=== PATIENT | male | born 1955 | race Caucasian/White ===

== ENCOUNTER → 2016-02-14 | Outpatient (CLI) | payer OTHER ==
--- NOTE | 2016-02-15 15:00 | ECGEPIP ---
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
== END ==
LOC: M LAB 15:52
PROVIDERS: ATTEND Orthopaedic Surgery
DX: Z01.818 Encounter for other preprocedural examination (principal); M17.11 Unilateral primary osteoarthritis, right knee

== ENCOUNTER → 2016-04-17 | Outpatient (CLI) | payer BC, OTHER ==
[~2016-04-17] VITALS: Ht 172.7 cm; Wt 86.2 kg
[~2016-04-17] MED LIST: ASPI81TA85 PO; ATOR40TA PO; LIDOCAINE 2% INJ 100 MG/5 ML SDV (FOR ANES.) As Ordered ONE; NS 1,000 ML IV SCH; OMEP40CA2 PO; PROPOFOL 200 MG/20 ML VIAL As Ordered ONE; VITA400C29 PO
--- NOTE | 2016-04-17 13:19 | ROOR ---
Patient Name: Wicho Conn Procedure Date: 04/17/2016 12:51 PM Date of : 1955 Age: 60 Room: [facility] Gender: Male Note Status: Finalized Procedure: Colonoscopy to Cecum + Cold Snare Polypectomy + hemoclip Indications: Screening for colorectal malignant neoplasm Providers: Gilbert Sun MD Referring MD: Ignacio Storm MD Requesting Provider: Medicines: Monitored Anesthesia Care Complications: No immediate complications. Procedure: Pre-Anesthesia Assessment: - The heart rate, respiratory rate, oxygen saturations, blood pressure, adequacy of pulmonary ventilation, and response to care were monitored throughout the procedure. The Colonoscope was introduced through the anus and advanced to the cecum, identified by appendiceal orifice and ileocecal valve. The colonoscopy was performed without difficulty. The patient tolerated the procedure well. The quality of the bowel preparation was excellent. Findings: The perianal and digital rectal examinations were normal. Non-bleeding internal hemorrhoids were found during retroflexion. The hemorrhoids were small and Grade I (internal hemorrhoids that do not prolapse). A medium polyp was found in the mid ascending colon. The polyp was sessile. The polyp was removed with a cold snare. Resection and retrieval were complete. To prevent bleeding after the polypectomy, two hemostatic clips were successfully placed (MR conditional). There was no bleeding at the end of the procedure. The exam was otherwise without abnormality on direct and retroflexion views. Impression: - Non-bleeding internal hemorrhoids. - One medium polyp in the mid ascending colon, removed with a cold snare. Resected and retrieved. Clips (MR conditional) were placed. - The examination was otherwise normal on direct and retroflexion views. - The exam was otherwise normal to the cecum. Recommendation: - Patient has a contact number available for emergencies. The signs and symptoms of potential delayed complications were discussed with the patient. Return to normal activities tomorrow. Written discharge instructions were provided to the patient. - High fiber diet. - Discharge patient to home. - Continue present medications. - Await pathology results. - Telephone GI clinic for pathology results in 1 week. - Repeat colonoscopy for surveillance based on pathology results. - Return to referring physician. - The findings and recommendations were discussed with the patient's family. Gilbert Sun MD Gilbert Sun MD 04/17/2016 1:18:52 PM This report has been signed electronically. Number of Addenda: 0 Note Initiated On: 04/17/2016 12:51 PM Estimated Blood Loss: Estimated blood loss: none.
[2016-04-17 14:02] VITALS: BP 107/86
== END ==
LOC: M OPP 11:42
PROVIDERS: ATTEND Internal Medicine Gastroenterology
DX: Z12.11 Encounter for screening for malignant neoplasm of colon (principal); D12.2 Benign neoplasm of ascending colon; K64.0 First degree hemorrhoids; I10 Essential (primary) hypertension; K21.9 Gastro-esophageal reflux disease without esophagitis; M17.11 Unilateral primary osteoarthritis, right knee; R06.83 Snoring; G47.30 Sleep apnea, unspecified; Z87.891 Personal history of nicotine dependence; Z79.82 Long term (current) use of aspirin; Z79.899 Other long term (current) drug therapy; Z88.0 Allergy status to penicillin

== ENCOUNTER → 2016-09-17 | Outpatient (CLI) | payer BC, OTHER ==
[~2016-09-17] MED LIST changes: -ATOR40TA PO; +ATOR40TA75 PO; -LIDOCAINE 2% INJ 100 MG/5 ML SDV (FOR ANES.) As Ordered ONE; -NS 1,000 ML IV SCH; -PROPOFOL 200 MG/20 ML VIAL As Ordered ONE; +VITA-110 PO; -VITA400C29 PO
--- NOTE | 2016-09-17 18:50 | REP ---
LEFT KNEE, FIVE VIEWS: HISTORY: Pain. There is no acute fracture or dislocation. There is narrowing of the joint spaces. Osteophytes are present on the patella. IMPRESSION: Degenerative change as described above. Signed by Navjot Cooley MD 09/18/2016 08:27 A
== END ==
LOC: M ADAMS 15:53
PROVIDERS: ATTEND Physician Assistant
DX: M25.562 Pain in left knee (principal)

== ENCOUNTER → 2016-11-04 | Outpatient (REF) | payer OTHER ==
[2016-11-04 12:45] LABS: ALBUMIN 3.7 GM/DL (3.2-5.2); ALBUMIN/GLOBULIN RATIO 1.12 (1.00-1.93); ALKALINE PHOSPHATASE 56 U/L (45-117); ALT/SGPT 39 U/L (12-78); ANION GAP 5 MEQ/L (8-16); AST/SGOT 22 U/L (15-37); BILIRUBIN,TOTAL 0.7 MG/DL (0.2-1.0); BLOOD UREA NITROGEN 15 MG/DL (7-18); CALCIUM LEVEL 8.7 MG/DL (8.8-10.2); CARBON DIOXIDE LEVEL 31 MEQ/L (21-32); CHLORIDE LEVEL 103 MEQ/L (98-107); CHOLESTEROL LEVEL 148 MG/DL (<200); GLOMERULAR FILTRATION RATE > 60.0 (>49); GLUCOSE, FASTING 89 MG/DL (80-110); POTASSIUM SERUM 4.4 MEQ/L (3.5-5.1); SODIUM LEVEL 139 MEQ/L (136-145); TRIGLYCERIDES LEVEL 95 MG/DL (<150)
== END ==
LOC: M SFHCADAM 08:00
PROVIDERS: ATTEND Family Medicine
DX: E78.4 Other hyperlipidemia (principal); E55.9 Vitamin D deficiency, unspecified

== ENCOUNTER → 2016-12-21 | Outpatient (CLI) | payer BC, OTHER ==
[2016-12-24 00:07] LABS: Lyme Disease IgG/IgM Antibodie <0.91 ISR (0.00-0.90); Lyme Disease IgM Ab Quantitati <0.80 index (0.00-0.79)
== END ==
LOC: M LAB 15:53
PROVIDERS: ATTEND Family Medicine
DX: Z01.83 Encounter for blood typing (principal)

== ENCOUNTER → 2018-01-12 | Outpatient (REF) | payer OTHER ==
[2018-01-12 18:49] LABS: C REACTIVE PROTEIN QUANTITATIV < 0.30 MG/DL (0.00-0.30)
[2018-01-12 19:03] LABS: BASO # 0.1 10^3/uL (0.0-0.2); BASO % 0.7 % (0.0-1.0); EOS # 0.2 10^3/uL (0.0-0.50); HEMATOCRIT 46.5 % (42.0-52.0); HEMOGLOBIN 15.6 g/dl (13.5-17.5); IMMATURE GRANULOCYTE % 0.5 % (0-3.0); LYMPH # 2.1 10^3/uL (1.5-4.5); LYMPH % 28.1 % (24.0-44.0); MEAN CORPUSCULAR HEMOGLOBIN 28.8 pg (27.0-33.0); MEAN CORPUSCULAR HGB CONC 33.5 g/dl (32.0-36.5); MONO # 0.6 10^3/uL (0.0-0.8); MONO % 7.7 % (0.0-5.0); NEUTROPHILS # 4.5 10^3/uL (1.8-7.7); PLATELET COUNT, AUTOMATED 247 10^3/uL (150-450); RED BLOOD COUNT 5.41 10^6/uL (4.30-6.10); RED CELL DISTRIBUTION WIDTH 14.3 % (11.5-14.5); WHITE BLOOD COUNT 7.4 10^3/uL (4.0-10.0)
[2018-01-12 19:52] LABS: ERYTHROCYTE SEDIMENTATION RATE 2 mm/hr (0-20)
== END ==
LOC: M LABDRAW1 12:39
DX: M17.11 Unilateral primary osteoarthritis, right knee (principal)
CPT/HCPCS: 86140

== ENCOUNTER → 2018-02-02 | Outpatient (CLI) | payer BC, OTHER ==
[~2018-02-02] MED LIST changes: +LIDOCAINE 1% MDV 20ML VIAL As Ordered ONE
--- NOTE | 2018-02-02 10:23 | REP ---
SOFT-TISSUE ULTRASOUND RIGHT KNEE: HISTORY: Right knee pain. Ultrasound preliminary to anticipated ultrasound-guided fluid aspiration right knee. MRI study , [facility] dated January 27, 2018 reported a 17 x 7 mm anteromedial fluid collection and raised a question of abscess. SONOGRAPHIC FINDINGS: Sonography performed in my presence shows no evidence of joint effusion or anteromedial fluid collection. There is no sonographic evidence of meniscal cyst, popliteal cyst or a periarticular ganglion cyst. There was no sonographic target for needle aspiration and thus this was deferred. IMPRESSION: Negative soft-tissue sonography. Periarticular soft tissues right knee. No abnormal fluid collection is observed. Electronically Signed by Anthony Valdez MD 02/02/2018 10:30 A
== END ==
LOC: M RADPRO 08:19
PROVIDERS: ATTEND Orthopaedic Surgery
DX: M25.461 Effusion, right knee (principal); Z53.8 Procedure and treatment not carried out for other reasons

== ENCOUNTER → 2018-02-14 | Outpatient (REF) | payer OTHER ==
[~2018-02-14] MED LIST changes: -LIDOCAINE 1% MDV 20ML VIAL As Ordered ONE
[2018-02-14 16:27] LABS: BLOOD UREA NITROGEN 21 MG/DL (7-18); CREATININE FOR GFR 1.08 MG/DL (0.70-1.30); GLOMERULAR FILTRATION RATE > 60.0 (>49)
== END ==
LOC: M LABDRAW1 15:37
PROVIDERS: ATTEND Orthopaedic Surgery
DX: S83.241A Other tear of medial meniscus, current injury, right knee, initial encounter (principal); X58.XXXA Exposure to other specified factors, initial encounter; Y92.9 Unspecified place or not applicable

== ENCOUNTER → 2018-04-05 | Outpatient (CLI) | payer OTHER ==
[2018-04-05 17:03] LABS: BASO # 0.1 10^3/uL (0.0-0.2); BASO % 0.6 % (0.0-1.0); EOS # 0.1 10^3/uL (0.0-0.50); EOS % 1.6 % (0.0-3.0); HEMATOCRIT 44.7 % (42.0-52.0); HEMOGLOBIN 15.3 g/dl (13.5-17.5); LYMPH # 2.3 10^3/uL (1.5-4.5); LYMPH % 26.8 % (24.0-44.0); MEAN CORPUSCULAR HEMOGLOBIN 28.7 pg (27.0-33.0); MEAN CORPUSCULAR HGB CONC 34.2 g/dl (32.0-36.5); MEAN CORPUSCULAR VOLUME 83.7 fl (80.0-96.0); MONO # 0.7 10^3/uL (0.0-0.8); MONO % 8.4 % (0.0-5.0); NEUTROPHILS # 5.3 10^3/uL (1.8-7.7); NEUTROPHILS % 62.1 % (36.0-66.0); PLATELET COUNT, AUTOMATED 236 10^3/uL (150-450); RED BLOOD COUNT 5.34 10^6/uL (4.30-6.10); WHITE BLOOD COUNT 8.5 10^3/uL (4.0-10.0)
[2018-04-05 17:31] LABS: ERYTHROCYTE SEDIMENTATION RATE 2 mm/hr (0-20)
== END ==
LOC: M LAB 16:08
PROVIDERS: ATTEND Orthopaedic Surgery
DX: M17.11 Unilateral primary osteoarthritis, right knee (principal)

== ENCOUNTER → 2018-04-27 | Outpatient (CLI) | payer BC, OTHER | LOC: M RAD 09:14 | PROVIDERS: ATTEND Otolaryngology | DX: H90.A31 Mixed conductive and sensorineural hearing loss, unilateral, right ear with restricted hearing on the contralateral side (principal) ==

== ENCOUNTER → 2018-05-20 | Outpatient (CLI) | payer BC, OTHER ==
--- NOTE | 2018-05-20 11:41 | REP ---
MRI brain and internal auditory canals without and with intravenous gadolinium: History: Hearing loss right ear. Rule out retrocochlear pathology. No comparison study. Gadolinium enhancement dose is 17 mL of intravenous ProHance. MR technique: Axial and coronal imaging planes are utilized. Thin section T1 and T2-weighted imaging is included through the internal auditory canals. Sequences include spin-echo, fast spin echo, FLAIR, diffusion weighted scans and thin-section 3D gradient echo imaging. MRI findings: The vertebral basilar arteries are tortuous. The left distal vertebral artery is seen indenting and slightly rotating the spinal medullary junction at the level of the foramen magnum. No other vascular abnormality is appreciated. No bony calvarial lesion is seen. No intraorbital abnormality is observed. There is no evidence of intracranial mass lesion. The internal auditory canals are normal and symmetric in size. Seventh and eighth cranial nerves within the IACs are normal in appearance. There is no evidence of intracanalicular or extra canalicular gadolinium enhancement. No other evidence of CP angle cistern mass lesion. Vestibular and cochlear apparatus appear intact on T2-weighted scans bilaterally. No abnormal intracranial gadolinium enhancement is seen. Impression: There is mass effect on the spinal medullary junction from a tortuous and somewhat ectatic left distal vertebral artery. Otherwise negative brain and internal auditory canal MRI exam. Electronically Signed by Anthony Valdez MD 05/20/2018 08:00 P
== END ==
LOC: M PLARAD 08:47
PROVIDERS: ATTEND Otolaryngology
DX: H90.A31 Mixed conductive and sensorineural hearing loss, unilateral, right ear with restricted hearing on the contralateral side (principal); I67.2 Cerebral atherosclerosis

== ENCOUNTER 2018-06-18 09:15 | Emergency (ER) | payer OTHER, BC ==
[~2018-06-18] VITALS: Ht 172.7 cm; Wt 92.7 kg
[2018-06-18] MEDS ORDERED: KETOROLAC 60 MG/2 ML VIAL (J1885) IM ONE (10:15)
--- NOTE | 2018-06-18 11:15 | REP ---
CT STUDY OF THE RIGHT KNEE WITHOUT CONTRAST: HISTORY: Evaluate for stress fracture. Comparison MRI study is from January 27, 2018. TECHNIQUE: Helical scanning is acquired, and 2 mm axial images are generated. Coronal and sagittal MPR images are generated. CT FINDINGS: No significant joint effusion is seen. No observable Deutsch cyst is seen. There is, however, a small fluid collection medial to the proximal tibial metaphysis. This measures 1.6 x 1.2 cm. This could be a para meniscal cyst. It is visible on the MRI study. Adjacent to this in the medial aspect of the proximal tibia is an area of sclerosis surrounding a more central area of mixed density in the medial tibial plateau. There is subcortical cyst formation immediately underlying the cortical margin of the tibial plateau. No periosteal reaction or samantha bone destruction is seen. This area shows abnormal signal intensity on the recent MRI study. There is medial compartment joint space narrowing and spurring. Some lateral osteoarthritic spurring is seen as well. The patellofemoral compartment shows osteoarthritis with subcortical cyst formation and spur formation. Joint space narrowing and cartilage loss is seen in the patellofemoral compartment. There is some vascular calcification. IMPRESSION: Osteoarthritic changes. No evidence of stress fracture. Subcortical cyst formation and arthritis associated edema and sclerosis in the medial tibial plateau. There is a small fluid collection anterior and medial to the proximal tibia as seen on the MRI study. These findings correspond to MR findings from January 27, 2018. No evidence of an acute change. Electronically Signed by Anthony Valdez MD 06/18/2018 12:20 P
[2018-06-18 11:23] VITALS: BP 129/87
== END 2018-06-18 11:46 | disposition home or self-care (01) ==
LOC: M ED 09:15
DX: M17.11 Unilateral primary osteoarthritis, right knee (principal); E78.5 Hyperlipidemia, unspecified; K21.9 Gastro-esophageal reflux disease without esophagitis; Z72.0 Tobacco use; Z87.81 Personal history of (healed) traumatic fracture; Z88.0 Allergy status to penicillin; Z79.899 Other long term (current) drug therapy; Z79.82 Long term (current) use of aspirin
CPT/HCPCS: 73700; 96372; 99283; J1885

== ENCOUNTER → 2018-06-24 | Outpatient (CLI) | payer OTHER, BC ==
[2018-06-24 12:54] LABS: BASO % 0.5 % (0.0-1.0); EOS # 0.1 10^3/uL (0.0-0.50); EOS % 1.7 % (0.0-3.0); HEMATOCRIT 48.8 % (42.0-52.0); HEMOGLOBIN 16.5 g/dl (13.5-17.5); LYMPH % 26.8 % (24.0-44.0); MEAN CORPUSCULAR HEMOGLOBIN 28.3 pg (27.0-33.0); MEAN CORPUSCULAR HGB CONC 33.8 g/dl (32.0-36.5); MEAN CORPUSCULAR VOLUME 83.7 fl (80.0-96.0); MONO # 0.6 10^3/uL (0.0-0.8); MONO % 7.4 % (0.0-5.0); NEUTROPHILS # 4.8 10^3/uL (1.8-7.7); NEUTROPHILS % 63.3 % (36.0-66.0); PLATELET COUNT, AUTOMATED 265 10^3/uL (150-450); RED BLOOD COUNT 5.83 10^6/uL (4.30-6.10); WHITE BLOOD COUNT 7.5 10^3/uL (4.0-10.0)
[2018-06-24 13:17] LABS: ERYTHROCYTE SEDIMENTATION RATE 1 mm/hr (0-20)
[2018-06-24 13:47] LABS: C REACTIVE PROTEIN QUANTITATIV < 0.30 MG/DL (0.00-0.30); URIC ACID 6.3 MG/DL (3.5-7.2)
[2018-06-25 14:30] LABS: Lyme Disease IgG/IgM Antibodie <0.91 ISR (0.00-0.90); Lyme Disease IgM Ab Quantitati <0.80 index (0.00-0.79)
== END ==
LOC: M LAB 12:03
PROVIDERS: ATTEND Physician Assistant Surgical
DX: M25.561 Pain in right knee (principal)

== ENCOUNTER → 2018-11-08 | Outpatient (REF) | payer OTHER ==
[~2018-11-08] MED LIST changes: -OMEP40CA2 PO; +OMEP40CA97 PO
[2018-11-08 13:09] LABS: HEMATOCRIT 48.4 % (42.0-52.0); MEAN CORPUSCULAR HEMOGLOBIN 28.6 pg (27.0-33.0); MEAN CORPUSCULAR HGB CONC 33.1 g/dl (32.0-36.5); MEAN CORPUSCULAR VOLUME 86.4 fl (80.0-96.0); PLATELET COUNT, AUTOMATED 245 10^3/uL (150-450); WHITE BLOOD COUNT 5.4 10^3/uL (4.0-10.0)
[2018-11-08 13:23] LABS: ALBUMIN 3.7 GM/DL (3.2-5.2); ALT/SGPT 30 U/L (12-78); BILIRUBIN,TOTAL 0.7 MG/DL (0.2-1.0); BLOOD UREA NITROGEN 17 MG/DL (7-18); CALCIUM LEVEL 9.2 MG/DL (8.8-10.2); CARBON DIOXIDE LEVEL 28 MEQ/L (21-32); CHLORIDE LEVEL 105 MEQ/L (98-107); CHOLESTEROL LEVEL 266 MG/DL (<200); CHOLESTEROL RISK RATIO 7.388 (<5); CREATININE FOR GFR 1.14 MG/DL (0.70-1.30); GLOMERULAR FILTRATION RATE > 60.0 (>49); GLUCOSE, FASTING 92 MG/DL (70-100); HDL CHOLESTEROL 36 MG/DL (>40); LDL CHOLESTEROL 192 MG/DL (<100); NON-HDL-C 230 MG/DL; POTASSIUM SERUM 4.6 MEQ/L (3.5-5.1); SODIUM LEVEL 139 MEQ/L (136-145); TOTAL PROTEIN 7.3 GM/DL (6.4-8.2); TRIGLYCERIDES LEVEL 191 MG/DL (<150)
== END ==
LOC: M SFHCADAM 10:50
PROVIDERS: ATTEND Family Medicine
DX: Z12.5 Encounter for screening for malignant neoplasm of prostate (principal); E78.5 Hyperlipidemia, unspecified; K21.9 Gastro-esophageal reflux disease without esophagitis
CPT/HCPCS: 80053; 80061; 85027; G0103

== ENCOUNTER → 2019-12-21 | Outpatient (REF) | payer OTHER ==
[~2019-12-21] MED LIST changes: -ASPI81TA85 PO; +ASPI81TA86 PO
[2019-12-21 13:38] LABS: ALBUMIN 3.4 GM/DL (3.2-5.2); ALT/SGPT 21 U/L (12-78); BILIRUBIN,TOTAL 0.9 MG/DL (0.2-1.0); BLOOD UREA NITROGEN 16 MG/DL (7-18); CALCIUM LEVEL 8.8 MG/DL (8.8-10.2); CARBON DIOXIDE LEVEL 29 MEQ/L (21-32); CHLORIDE LEVEL 104 MEQ/L (98-107); CHOLESTEROL LEVEL 197 MG/DL (<200); CHOLESTEROL RISK RATIO 4.581 (<5); GLOMERULAR FILTRATION RATE > 60.0 (>49); GLUCOSE, FASTING 89 MG/DL (70-100); HDL CHOLESTEROL 43 MG/DL (>40); LDL CHOLESTEROL 129 MG/DL (<100); NON-HDL-C 154 MG/DL; SODIUM LEVEL 138 MEQ/L (136-145); TOTAL PROTEIN 6.6 GM/DL (6.4-8.2); TRIGLYCERIDES LEVEL 125 MG/DL (<150)
== END ==
LOC: M SFHCADAM 09:13
PROVIDERS: ATTEND Family Medicine
DX: E78.5 Hyperlipidemia, unspecified (principal); Z12.5 Encounter for screening for malignant neoplasm of prostate

== ENCOUNTER 2020-08-30 02:24 | Inpatient (IN) | payer BC, OTHER ==
[~2020-08-30] VITALS: Ht 175.3 cm; Wt 69.5 kg
[~2020-08-30 02:24] MED LIST changes: +OMEP40CA4 PO; -OMEP40CA97 PO
[2020-08-30] MEDS ORDERED: NS 1,000 ML IV ONE ×3 (02:40→06:00)
[2020-08-30] MEDS ORDERED: ONDANSETRON 4MG/2ML VIAL IV ONE (02:40)
[2020-08-30] MEDS: MORPHINE 2 MG/ML 1ML VIAL (J2270) IV PRN ×2 (02:57→06:27)
[2020-08-30 03:09] LABS: BASO % 0.2 % (0.0-1.0); EOS % 0.3 % (0.0-3.0); HEMATOCRIT 45.1 % (42.0-52.0); HEMOGLOBIN 15.5 g/dl (13.5-17.5); LYMPH % 7.9 % (24.0-44.0); MEAN CORPUSCULAR HEMOGLOBIN 29.2 pg (27.0-33.0); MEAN CORPUSCULAR HGB CONC 34.4 g/dl (32.0-36.5); MEAN CORPUSCULAR VOLUME 84.9 fl (80.0-96.0); MONO # 0.6 10^3/uL (0.0-0.8); MONO % 4.8 % (2.0-8.0); NEUTROPHILS # 10.6 10^3/uL (1.5-8.5); NEUTROPHILS % 86.5 % (36.0-66.0); PLATELET COUNT, AUTOMATED 208 10^3/uL (150-450); RED BLOOD COUNT 5.31 10^6/uL (4.30-6.10); WHITE BLOOD COUNT 12.3 10^3/uL (4.0-10.0)
[2020-08-30] MEDS ORDERED: ISOVUE-370 76% 100ML VIAL As Ordered ONE (03:10)
[2020-08-30 03:49] LABS: ALT/SGPT 25 U/L (12-78); CPK CREATINE PHOSPHOKINASE 201 U/L (39-308)
[2020-08-30 03:50] LABS: ALBUMIN 3.6 GM/DL (3.2-5.2); BILIRUBIN,DIRECT 0.1 MG/DL (0.0-0.2); BILIRUBIN,TOTAL 0.5 MG/DL (0.2-1.0); CK-MB VALUE MASS 2.7 NG/ML (<3.6); LIPASE 24388 U/L (73-393); MB/CK RELATIVE INDEX 1.34 (< OR =4); TOTAL PROTEIN 6.7 GM/DL (6.4-8.2); TROPONIN I < 0.02 NG/ML (< 0.10)
[2020-08-30 03:54] LABS: RSV AMPLIFICATION NEGATIVE (NEGATIVE)
--- NOTE | 2020-08-30 04:52 | REPVR ---
PROCEDURE INFORMATION: Exam: CT Abdomen And Pelvis With Contrast Exam date and time: 08/30/2020 2:38 AM Age: 64 years old Clinical indication: Abdominal pain; Localized; Right lower quadrant (rlq); Additional info: Rlq pain TECHNIQUE: Imaging protocol: Computed tomography of the abdomen and pelvis with contrast. Radiation optimization: All CT scans at this facility use at least one of these dose optimization techniques: automated exposure control; mA and/or kV adjustment per patient size (includes targeted exams where dose is matched to clinical indication); or iterative reconstruction. Contrast material: ISO; Contrast volume: 100 ml; Contrast route: INTRAVENOUS (IV); COMPARISON: CR PORTABLE CHEST X-RAY 08/30/2020 2:42 AM FINDINGS: Mild dependent atelectatic changes in the posterior right lung base. Probable calcified granuloma in the anterior right lung base. Lung bases are otherwise clear. No pleural effusion. The liver, spleen, pancreas and adrenals are grossly normal. Gallbladder is normally distended with no evidence of calcified gallstones. Kidneys demonstrate symmetric function. No focal parenchymal abnormalities or obstructive uropathy. Atherosclerotic changes identified within the abdominal aorta and aortic branch vessels with no evidence of aneurysmal dilatation. There is concentric thickening of the romero of the gastric antrum. There are probable small duodenal diverticula within the 3rd and 4th portion of the duodenum. There are moderate inflammatory changes with inflammatory fluid adjacent to the duodenum extending into the right abdomen and right lower quadrant. Small and large bowel loops are otherwise unremarkable. No evidence of enteric obstruction. There is a normal appendix. Pelvic organs are grossly normal. No significant free fluid in the abdomen or pelvis. IMPRESSION: Concentric thickening of the romero of the gastric antrum. Probable small diverticula or ulcerations in the duodenum. Moderate inflammatory changes adjacent to the duodenum with probable inflammatory fluid extending into the right abdomen and right lower quadrant. Etiology is unknown. Diagnostic considerations would favor infectious or inflammatory gastroenteritis including peptic ulcer disease. Clinical correlation and follow-up is recommended. Incidental note is made of a normal appendix with no evidence of appendicitis. No other acute intra-abdominal or pelvic process. Additional nonemergent findings as described above. Electronically signed by: Maicol Gonsales On 08/30/2020 04:52:05 AM
--- NOTE | 2020-08-30 04:52 | REPVR ---
PROCEDURE INFORMATION: Exam: XR Chest Exam date and time: 08/30/2020 3:08 AM Age: 64 years old Clinical indication: Pain; Angina pectoris; Additional info: Abdominal pain TECHNIQUE: Imaging protocol: XR of the chest. Views: 1 view. COMPARISON: No relevant prior studies available. FINDINGS: Cardiac silhouette is within normal limits. Aerated lungs are clear with no focal areas of consolidation, pleural effusion or overt failure. IMPRESSION: Examination limited by portable technique. No acute pulmonary process. Electronically signed by: Maicol Gonsales On 08/30/2020 04:52:38 AM
[2020-08-30] MEDS ORDERED: PRAV20TA2 PO (05:27)
[2020-08-30] MEDS: SUCRALFATE SUSP 1GM/10ML UD PO SCH ×3 (06:27→17:33)
--- NOTE | 2020-08-30 06:50 | HPEPDOC ---
[facility] Medical History & Physical Date of Admission Aug 30, 2020 Date of Service: Aug 30, 2020 History and Physical CHIEF COMPLAINT: Abdominal pain since 11 PM last night HISTORY OF PRESENT ILLNESS: 64-year-old male with history of cigar use and alcohol use of 5 beers with his friends 2-3 times a week, gastroesophageal reflux disease , colonic polyps on colonoscopy by Dr. Sun, with chronic NSAID use 800 mg 3 times daily as needed and aspirin 81 mg daily presents to the emergency room with acute onset of bandlike epigastric abdominal pain described as "like you did a bunch is sit- ups," that started at 11 PM last night accompanied with one episode of nausea and vomiting and slight coffee-ground emesis in the ER without fever chills or diarrhea. Patient denies any dysphagia odynophagia hematemesis bright red blood per rectum melena or black tarry stools, dysuria urgency frequency flank pain chest pain pressure tightness lightheadedness shortness of breath dizziness. He has had no prior episodes in the past and took Pepto-Bismol without any improvement. Patient says that he has had a 50 pound weight loss in the past 15 months initially because he was dieting and was walking 2 to 4 miles a day but over the past 2 weeks patient continues to lose weight despite eating snacks and his normal diet. In the ER patient was hemodynamically stable, EKG was sinus without acute ST-T wave changes, CT abdomen and pelvis shows normal pancreas, concentric thickening of the gastric antrum and small diverticula in the duodenum within the third and fourth portion with moderate inflammatory changes adjacent to the duodenum extending into the right abdomen and right lower quadrant. Lipase was 24,388. Liver function tests were within normal limits troponin was less than 0.02 and lactic acid was 1.2. Hospitalist was asked to admit the patient for abdominal pain possible pancreatitis. PAST MEDICAL HISTORY: Gastroesophageal reflux disease hyperlipidemia allergic rhinitis obstructive sleep apnea on CPAP vitamin D deficiency internal hemorrhoids nonbleeding colonic polyps status post hemos static clips by Dr. Sun in 2017 degenerative joint disease of the left knee PAST SURGICAL HISTORY: Colonoscopy hernia repair by Dr. 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 REVIEW OF SYSTEMS: 10 point review of systems negative aside from positive findings in HPI HOME MEDICATIONS: Please see below. PHYSICAL EXAMINATION: VITAL SIGNS: See below GENERAL APPEARANCE: No icterus jaundice no distress awake alert oriented x3 HEENT: Pupils equally round reactive to light accommodation extract muscles intact no JVD no thyromegaly no cervical lymphadenopathy moist mucous membranes CARDIOVASCULAR: S1-S2 sinus rhythm no murmurs rubs or gallops LUNGS: Clear to auscultation no wheezing rales or rhonchi air entry is equal bilaterally ABDOMEN: Positive bowel sounds x4 quadrants soft tender in the epigastric region no rebound or guarding EXTREMITIES: No cyanosis clubbing or pitting edema LABORATORY DATA: See below. IMAGING: CT abdomen and pelvis normal pancreas. Concentric thickening of the romero of the gastric antrum small diverticula or ulcerations in the duodenum moderate inflammatory changes adjacent to the duodenum with probable inflammatory fluid extending into the right abdomen and right lower quadrant etiology unknown no other acute intra-abdominal or pelvic process. MICROBIOLOGY: Please see below. ASSESSMENT: 64-year-old male with past medical history significant for gastroesophageal reflux disease, tobacco and alcohol use 5 beers 2-3 times a week, nonsteroidal anti-inflammatory use with ibuprofen 800 mg 3 times daily as needed and chronic aspirin 81 mg daily, prior colonoscopy showing sessile polyp status post 2 hemostatic clips done by Dr. Sun 2017, internal hemorrhoids presents to the emergency room with acute onset of bandlike epigastric abdominal pain without fever chills but with episode of nausea and vomiting with small amount of coffee-ground emesis. Patient is hemodynamically stable with normal hemoglobin lipase is 24,[address] abdomen and pelvis showing normal pancreas, concentric thickening of the romero of the gastric antrum, probable small diverticula or ulcerations in the duodenum, moderate inflammatory changes adjacent to the duodenum with inflammatory fluid extending into the right abdomen and right lower quadrant. Patient will be admitted as an inpatient for 2 midnights for the following issues: Abdominal pain -Probable NSAID induced antral gastritis or duodenal ulcer with 1 episode of coffee-ground emesis. -Normal pancreas on CT abdomen and pelvis despite elevated lipase level of 24,000 -Patient will be kept n.p.o. with IV fluids Protonix and Carafate will be given if patient has overt hematemesis he may need to have EGD during this admission -Check H. pylori -Referred to Dr. Sun as outpatient if stable during this admission for an EGD -PPI twice daily and Carafate 1 g every 6 while n.p.o. before every meal at bedtime once resumes an oral diet -Avoid NSAIDs and hold aspirin. 50lb weight loss -in the past 15 months, initially intentional with increased exercise and diet, but recently in the past 2 weeks, continues to have weight loss despite increa sed caloric intake. -check possible metabolic causes eg. a1c, tsh. -colonoscopy negative in [address] Sun. Gastroesophageal reflux disease -PPI hyperlipidemia -Check lipid profile allergic rhinitis obstructive sleep apnea on CPAP -Resume home CPAP vitamin D deficiency internal hemorrhoids nonbleeding colonic polyps status post hemos static clips by Dr. Sun in 2017 degenerative joint disease of the left knee Alcohol use -5 beers 2-3 times a week -CIWA protocol -Given a banana bag multivitamin thiamine folate Tobacco abuse with cigar use -Cessation counseling has been provided Diet n.p.o. IV fluids DVT prophylaxis compression stockings Vital Signs Vital Signs Date Time Temp Pulse Resp B/P (MAP) Pulse Ox O2 Delivery O2 Flow Rate FiO2 08/30/20 05:54 61 98 08/30/20 03:07 18 08/30/20 02:32 96.9 116/68 Room Air Laboratory Data Labs 24H Laboratory Tests 2 08/30/20 02:42: Immature Granulocyte % (Auto) 0.3, Neutrophils (%) (Auto) 86.5H, Lymphocytes (%) (Auto) 7.9L, Monocytes (%) (Auto) 4.8, Eosinophils (%) (Auto) 0.3, Basophils (%) (Auto) 0.2, Neutrophils # (Auto) 10.6H, Lymphocytes # (Auto) 1.0L, Monocytes # (Auto) 0.6, Eosinophils # (Auto) 0.0, Basophils # (Auto) 0.0, Nucleated Red Blood Cells % (auto) 0.0, Urine Color YELLOW, Urine Appearance CLEAR, Urine pH 7.0, Urine Specific [place] 1.034, Urine Protein 1+H, Urine Glucose (UA) NEGATIVE, Urine Ketones TRACEH, Urine Blood NEGATIVE, Urine Nitrite NEGATIVE, Urine Bilirubin NEGATIVE, Urine Urobilinogen 0.2, Urine Leukocyte Esterase NEGATIVE, Urine WBC (Auto) 0, Urine RBC (Auto) 0, Urine Hyaline Casts (Auto) 0, Urine Bacteria (Auto) NEGATIVE, Urine Squamous Epithelial Cells 0, Urine Mucus (Auto) SMALL, Urine Sperm (Auto) SMALLH, Lactic Acid Level 1.2, Total Bilirubin 0.5, Direct Bilirubin 0.1, Aspartate Amino Transf (AST/SGOT) 18, Alanine Aminotransferase (ALT/SGPT) 25, Alkaline Phosphatase 47, Total Creatine Kinase 201, Creatine Kinase MB 2.7, Creatine Kinase MB Relative Index 1.34, Troponin I < 0.02, Total Protein 6.7, Albumin 3.6, Albumin/Globulin Ratio 1.2, Lipase 63459E, Coronavirus (COVID-19)(PCR) NEGATIVE, Influenza Type A (RT-PCR) NEGATIVE, Influenza Type B (RT-PCR) NEGATIVE, Respiratory Syncytial Virus (PCR) NEGATIVE 08/30/20 03:03: POC Glucose (Misc Panel) 143H, POC Sodium (Misc Panel) 140, POC Potassium (Misc Panel) 3.6, POC Chloride (Misc Panel) 100, POC Total CO2 (Misc Panel) 23.0, POC Blood Urea Nitrogen (Misc Panel 22, POC Ionized Calcium (Misc Panel) 4.5, POC Creatinine (Misc Panel) 1.1, POC Hematocrit (Misc Panel) 47.0 CBC/BMP Laboratory Tests 08/30/20 02:42 Home Medications Scheduled Omeprazole (Omeprazole) 40 Mg Cap, 40 MG PO DAILY Pravastatin Sodium (Pravastatin Sodium) 20 Mg Tablet, 20 MG PO DAILY Allergies Coded Allergies: Penicillins (Verified Allergy, Mild, HVIES, 08/30/20) A-FIB/CHADSVASC A-FIB History Current/History of A-Fib/PAF?: No Current PO Anticoag Therapy: No Age/Risk Factor Scoring CHADSVASC: CHADSVASC Response (Comments) Value Age Risk Factor Age < 65 years old 0 Gender Risk Factor Male 0 Hx of CHF No 0 Hx of HTN No 0 Hx of Stroke/TIA/or VTE No 0 Hx of Diabetes No 0 Hx of Vascular Disease No 0 Total 0 Treatment Treatment ordered: NONE FANNY CRANE MD Aug 30, 2020 06:48
[2020-08-30] MEDS ORDERED: MULTIVITAMIN -ADULT INJECTION 10 ML, THIAMINE INJection 100 MG, FOLIC ACID 1 MG in NS 1... IV ONE (07:00)
[2020-08-30 08:53] LABS: CHOLESTEROL LEVEL 164 MG/DL (<200); HDL CHOLESTEROL 41 MG/DL (>40); LDL CHOLESTEROL 103 MG/DL (<100); NON-HDL-C 123 MG/DL; TRIGLYCERIDES LEVEL 98 MG/DL (<150)
[2020-08-30 09:10] LABS: HEMOGLOBIN A1c 5.2 %
[2020-08-30 12:31] VITALS: BP 123/70
[2020-08-30 14:00] VITALS: BP 120/72
[2020-08-30] MEDS ORDERED: D5W/0.45% SODIUM CHLORIDE 1,000 ML IV SCH (17:00)
--- NOTE | 2020-08-30 18:17 | IPNPDOC ---
Text Note Date of Service The patient was seen on 08/30/20. NOTE Hospitalist Progress Note Subjective: The patient reports that his abdominal pain is improved, but it is still somewhat sore. He is amenable to the idea of attempting to eat at this time. We will start him on a liquid diet, and if he tolerates this well then we may advance as tolerated, and then DC IV fluids when he is tolerating oral intake. Otherwise, the remainder of his review of systems is negative. Objective: General: Awake, alert, oriented 3. Not in any acute distress. HEENT: Head normocephalic, atraumatic, sclera are nonicteric. Hearing is grossly intact to conversation. Respiratory: Clear to auscultation bilaterally with no wheezes, rales, or rhonchi. Cardiovascular: Regular rate and rhythm, with no rubs, gallops, or murmur. Abdomen: Soft, nontender, nondistended, no hepatosplenomegaly appreciated. Bowel sounds present. Extremities: 2+ pulses in the radial and dorsalis pedis bilaterally. No evidence of clubbing or cyanosis. Assessment/Plan : Acute pancreatitis -Etiology unknown, the patient reports that he actually only drinks a few beers on seldom occasion, no more than once or twice a month, and it has been at least 2 weeks since he has had a drink, therefore alcoholic pancreatitis seems unlikely -Imaging shows inflammation near the duodenum which could be related to pancreatic head pancreatitis, gallstones are not specifically mentioned. -Lipid profile within acceptable limits -At this time may advance diet as tolerated -Discontinue IV fluids when tolerating p.o. 50 pound weight loss over the last 1 year -The patient does report that he has been making a significant attempt at weight loss. He has been exercising regularly and using some slim-fast shakes, therefore this weight loss is not unexpected. He is just wondering if the significant amount of weight loss could have contributed to his developing pancreatitis. NSAID use -His abdominal pain could also be secondary to NSAID induced gastritis or duodenal ulcer -Avoid NSAIDs and hold aspirin -Continue Carafate and PPI GERD -Continue PPI Obstructive sleep apnea -Patient may use home CPAP Alcohol use -Patient reports that he does not use alcohol as heavily as was described in the H&P -Continue banana bag, multivitamin, thiamine Tobacco abuse with cigarette use -Cessation counseling DVT prophylaxis -Compression stockings VS,Fishbone, I+O VS, Fishbone, I+O Laboratory Tests 08/30/20 02:42 Vital Signs Date Time Temp Pulse Resp B/P (MAP) Pulse Ox O2 Delivery O2 Flow Rate FiO2 08/30/20 14:00 97.6 62 16 120/72 (88) 99 Room Air I&O- Last 24 Hours up to 6 AM 08/30/20 06:00 Intake Total 1000 ml Balance 1000 ml ARYA CARLTON DO Aug 30, 2020 18:17
[2020-08-30 21:00] VITALS: BP 95/63
[2020-08-30 22:00] VITALS: BP 95/63
[2020-08-31] MEDS: SUCRALFATE SUSP 1GM/10ML UD PO SCH ×2 (00:16→05:44)
[2020-08-31 05:45] VITALS: BP 126/70
[2020-08-31 06:00] VITALS: BP 126/70
[2020-08-31 06:55] LABS: BASO % 0.5 % (0.0-1.0); EOS # 0.5 10^3/uL (0.0-0.5); HEMATOCRIT 39.6 % (42.0-52.0); HEMOGLOBIN 13.3 g/dl (13.5-17.5); LYMPH # 1.7 10^3/uL (1.5-5.0); LYMPH % 30.3 % (24.0-44.0); MEAN CORPUSCULAR HEMOGLOBIN 29.2 pg (27.0-33.0); MEAN CORPUSCULAR HGB CONC 33.6 g/dl (32.0-36.5); MEAN CORPUSCULAR VOLUME 86.8 fl (80.0-96.0); MONO # 0.4 10^3/uL (0.0-0.8); MONO % 6.6 % (2.0-8.0); NEUTROPHILS # 3.1 10^3/uL (1.5-8.5); NEUTROPHILS % 54.4 % (36.0-66.0); PLATELET COUNT, AUTOMATED 177 10^3/uL (150-450); RED BLOOD COUNT 4.56 10^6/uL (4.30-6.10); WHITE BLOOD COUNT 5.6 10^3/uL (4.0-10.0)
[2020-08-31 07:17] LABS: ALBUMIN 2.8 GM/DL (3.2-5.2); ALT/SGPT 19 U/L (12-78); BILIRUBIN,TOTAL 0.4 MG/DL (0.2-1.0); BLOOD UREA NITROGEN 10 MG/DL (7-18); CALCIUM LEVEL 8.3 MG/DL (8.8-10.2); CARBON DIOXIDE LEVEL 26 MEQ/L (21-32); CHLORIDE LEVEL 110 MEQ/L (98-107); CREATININE FOR GFR 0.82 MG/DL (0.70-1.30); GLOMERULAR FILTRATION RATE > 60.0 (>49); GLUCOSE, FASTING 94 MG/DL (70-100); LIPASE 1492 U/L (73-393); SODIUM LEVEL 142 MEQ/L (136-145); TOTAL PROTEIN 5.4 GM/DL (6.4-8.2)
[2020-08-31] MEDS ORDERED: MULTIVITAMINS/MINERALS THERAP 1 TAB PO SCH (09:00)
[2020-08-31] MEDS ORDERED: FOLIC ACID 1 MG TAB PO SCH (09:00)
[2020-08-31] MEDS ORDERED: THIAMINE 100 MG TAB PO SCH (09:00)
--- NOTE | 2020-08-31 10:45 | DS.PDOC ---
Discharge Summary General Date of Admission Aug 30, 2020 at 02:25 Date of Discharge 08/31/2020 Discharge Summary PRIMARY CARE PHYSICIAN: Dr. Emeterio MD ATTENDING AT TIME OF DISCHARGE: Dr. Arya Carlton DO DISCHARGE DIAGNOS(E)S: Acute pancreatitis Intentional weight loss NSAID use GERD Obstructive sleep apnea Alcohol use Tobacco use (cigar use) HPI & HOSPITAL COURSE: 64-year-old male admitted with abdominal pain. CT scan in the emergency department showed inflammation in the region of the pancreatic head, duodenum, and antral portion of the stomach. Due to significantly elevated lipase it is suspected that the etiology of his pain was pancreatitis. He has no history of gallstones, and there were not any seen on the CT scan. LFTs were unremarkable. He only drinks alcohol on occasion, and it has been a few weeks since his last drink, therefore alcohol induced pancreatitis is unlikely. Cholesterol is actually quite good, and triglycerides are within normal range. Therefore we do not have a specific etiology for his pancreatitis at this time. There is a possibility that this is NSAID induced gastritis with local inflammation affecting the pancreatic head, therefore it was recommended that he discontinue NSAIDs, and continue taking his PPI. After remaining n.p.o. for 24 hours with fluid resuscitation his pain has improved, and he was started on a diet. He tolerated last night's dinner well, as well as breakfast this morning without any exacerbation of pain, therefore he does appear to be stable and ready for discharge at this time. PHYSICAL EXAMINATION ON DISCHARGE: GENERAL: Awake, alert, oriented x3. He is in no acute distress. CARDIOVASCULAR EXAMINATION: Regular rate and rhythm, with no rubs, gallops, or murmur. RESPIRATORY EXAMINATION: Clear to auscultation bilaterally with no wheezes, rales, or rhonchi. ABDOMINAL EXAMINATION: Soft, nontender, nondistended. Bowel sounds present. EXTREMITIES: No clubbing or edema noted. 2+ pulses in the radial bilaterally. DISPOSITION: Home DISCHARGE INSTRUCTIONS: Follow-up with primary care provider within 7-14 days. Recommend a slow returning back to a normal diet. Activity as tolerated if symptoms return, or if you experience worsening of your symptoms, please call your doctor or return to the emergency department. Vital Signs/I&Os Vital Signs Date Time Temp Pulse Resp B/P (MAP) Pulse Ox O2 Delivery O2 Flow Rate FiO2 08/31/20 06:00 98.1 66 20 126/70 (88) 95 Room Air I&O- Last 24 Hours up to 6 AM 08/31/20 06:00 Intake Total 1851 ml Output Total 1575 ml Balance 276 ml Laboratory Data Labs 24H Laboratory Tests 2 08/31/20 06:31: Immature Granulocyte % (Auto) 0.2, Neutrophils (%) (Auto) 54.4, Lymphocytes (%) (Auto) 30.3, Monocytes (%) (Auto) 6.6, Eosinophils (%) (Auto) 8.0H, Basophils (%) (Auto) 0.5, Neutrophils # (Auto) 3.1, Lymphocytes # (Auto) 1.7, Monocytes # (Auto) 0.4, Eosinophils # (Auto) 0.5, Basophils # (Auto) 0.0, Nucleated Red Blood Cells % (auto) 0.0, Anion Gap 6L, Glomerular Filtration Rate > 60.0, Calcium Level 8.3L, Total Bilirubin 0.4, Aspartate Amino Transf (AST/SGOT) 10, Alanine Aminotransferase (ALT/SGPT) 19, Alkaline Phosphatase 36L, Total Protein 5.4L, Albumin 2.8#L, Albumin/Globulin Ratio 1.1, Lipase 1492H CBC/BMP Laboratory Tests 08/31/20 06:31 Discharge Medications Scheduled Omeprazole (Omeprazole) 40 Mg Cap, 40 MG PO DAILY, (Reported) Pravastatin Sodium (Pravastatin Sodium) 20 Mg Tablet, 20 MG PO DAILY, (Reported) Allergies Coded Allergies: Penicillins (Verified Allergy, Mild, HVIES, 08/30/20) ARYA CARLTON DO Aug 31, 2020 10:45
--- NOTE | 2020-08-31 21:13 | ECGEPIP ---
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
--- NOTE | 2020-09-01 14:48 | ED PDOC ---
Post-Departure Follow-Up radiology report faxed to Lisa Tabares MD Sep 01, 2020 14:48
== END 2020-08-31 11:55 | disposition home or self-care (01) | DRG 282 ==
LOC: M ED 02:24 → M ED INP 02:25 → ENRESERV 11:05 → M MS5PR 12:13
PROVIDERS: ADMIT General Practice; ATTEND Neuromusculoskeletal Medicine & OMM
DX: K85.90 Acute pancreatitis without necrosis or infection, unspecified (principal); E78.5 Hyperlipidemia, unspecified; K21.9 Gastro-esophageal reflux disease without esophagitis; J30.9 Allergic rhinitis, unspecified; T39.395A Adverse effect of other nonsteroidal anti-inflammatory drugs [NSAID], initial encounter; G47.33 Obstructive sleep apnea (adult) (pediatric); F17.210 Nicotine dependence, cigarettes, uncomplicated; K29.70 Gastritis, unspecified, without bleeding; K64.8 Other hemorrhoids; M17.11 Unilateral primary osteoarthritis, right knee; Z20.822 Contact with and (suspected) exposure to COVID-19; Z79.899 Other long term (current) drug therapy; Z88.0 Allergy status to penicillin; Z86.010 Personal history of colon polyps

== ENCOUNTER → 2020-09-09 | Outpatient (REF) | payer OTHER ==
[~2020-09-09] MED LIST changes: +ASPI81TA26 PO; +PRAV20TA2 PO
[2020-09-09 13:32] LABS: HEMATOCRIT 44.9 % (42.0-52.0); HEMOGLOBIN 14.9 g/dl (13.5-17.5); MEAN CORPUSCULAR HEMOGLOBIN 29.1 pg (27.0-33.0); MEAN CORPUSCULAR HGB CONC 33.2 g/dl (32.0-36.5); MEAN CORPUSCULAR VOLUME 87.7 fl (80.0-96.0); PLATELET COUNT, AUTOMATED 240 10^3/uL (150-450); RED BLOOD COUNT 5.12 10^6/uL (4.30-6.10); WHITE BLOOD COUNT 5.3 10^3/uL (4.0-10.0)
[2020-09-09 14:02] LABS: ALBUMIN 3.5 GM/DL (3.2-5.2); ALT/SGPT 25 U/L (12-78); BILIRUBIN,TOTAL 0.6 MG/DL (0.2-1.0); BLOOD UREA NITROGEN 19 MG/DL (7-18); CALCIUM LEVEL 8.7 MG/DL (8.8-10.2); CARBON DIOXIDE LEVEL 30 MEQ/L (21-32); CHLORIDE LEVEL 106 MEQ/L (98-107); CHOLESTEROL LEVEL 181 MG/DL (<200); CHOLESTEROL RISK RATIO 4.209 (<5); GLOMERULAR FILTRATION RATE > 60.0 (>49); GLUCOSE, FASTING 90 MG/DL (70-100); HDL CHOLESTEROL 43 MG/DL (>40); LDL CHOLESTEROL 120 MG/DL (<100); NON-HDL-C 138 MG/DL; POTASSIUM SERUM 4.7 MEQ/L (3.5-5.1); SODIUM LEVEL 140 MEQ/L (136-145); TOTAL PROTEIN 6.6 GM/DL (6.4-8.2); TRIGLYCERIDES LEVEL 92 MG/DL (<150)
== END ==
LOC: M SFHCADAM 08:43
PROVIDERS: ATTEND Family Medicine
DX: K21.9 Gastro-esophageal reflux disease without esophagitis (principal); E78.5 Hyperlipidemia, unspecified; Z12.5 Encounter for screening for malignant neoplasm of prostate

== ENCOUNTER → 2020-10-22 | Outpatient (REF) | payer OTHER ==
[~2020-10-22] MED LIST changes: -ASPI81TA26 PO
== END ==
LOC: M LAB REF 16:30
PROVIDERS: ATTEND Otolaryngology
DX: D11.0 Benign neoplasm of parotid gland (principal)

== ENCOUNTER → 2020-12-12 | Outpatient (CLI) | payer MEDICARE, BC, OTHER | LOC: M LABSMTC 09:36 | PROVIDERS: ATTEND Anesthesiology | DX: Z01.818 Encounter for other preprocedural examination (principal); Z11.52 Encounter for screening for COVID-19 ==

== ENCOUNTER 2020-12-16 09:50 | Day surgery (SDC) | payer MEDICARE, BC, OTHER ==
[~2020-12-16] VITALS: Ht 175.3 cm; Wt 71.2 kg
[~2020-12-16 09:50] MED LIST changes: +NS 1,000 ML IV ONE
--- OUTSIDE RECORDS SUMMARY | 2020-12-16 09:56 | CCD ---
Author Author [employer] [facility] Organization [employer] [facility] Address Unknown Phone Unavailable Care Team Providers Care Marine Firer Name Role Phone Emeterio Ignacio Unavailable PROBLEMS Type Condition ICD9-CM Code [id number] Code Onset Dates Condition S tatus W/U Status Risk SNOMED Code Notes Problem Vitamin D deficiency, unspecified E55.9 Active con firmed 96888612 Problem Gastro-esophageal reflux disease without esophagitis K21.9 Active confirmed 350779664 Problem Duodenal ulcer K26.9 Active confirmed 22703 009 Problem History of adenomatous polyp of colon Z86.010 Ac tive confirmed 974297159 Problem Right knee pain M25.561 Active confirmed 309 90407 Problem Dyslipidemia E78.5 Active confirmed 0225177 07 Problem Encounter for immunization Z23 Active confirmed 077021755 Problem Screening for prostate cancer Z12.5 Active confirm ed 464068804 ALLERGIES Allergen (clinical drug ingredient) Drug/Non Drug Allergy do cumented on EMR Reaction Allergy Type Onset Date Status Crestor body aches Non Drug Allergy Active Penicillin (For Allergies Use Only) Hives Drug Allerg y Active ENCOUNTERS from 1955 to 2020-09-20 Encounter Location Date Provider Diagnosis [place] [id number] [place] [id number] Sep, Ignacio Storm Idiopathic acute pancreatitis without in fection or necrosis K85.00 ; Duodenal ulcer K26.9 ; History of adenomatous polyp of colon Z86.010 and Palpable mass of neck R22.1 IMMUNIZATIONS Vaccine Route Administration Date Status Influenza 18 yrs & older Flublok IM Intramuscular Dec 14, 2019 Administered SOCIAL HISTORY Tobacco Use: Social History Observation Description Date Details (start date - stop date) Uses tobacco in other forms Sex Assigned At : Social History Observation Description Sex Assigned At Unknown Audit Question Answer Notes Total Score: 2 Interpretation: Alcohol Education Drug and Alcohol Question Answer Notes Total Score: 0 Interpretation: No problems reported Alcohol Screening: Question Answer Notes Did you have a drink containing alcohol in the past year? Ye s Points 2 Interpretation Negative How often did you have six or more drinks on one occas ion in the past year? Never (0 points) How many drinks did you have on a typica l day when you were drinking in the past year? 1 or 2 (0 points) How often did you have a drink containing alcohol in t he past year? Two to four times a month (2 points) Tobacco Use: Question Answer Notes Are you a: Uses tobacco in other forms occsasional cigars REASON FOR REFERRAL from 1955 to 2020-09-20 Reason EGD/colo Diagnosis 1 Duodenal ulcer (K26.9) Diagnosis 2 History of adenomatous polyp of colon (Z86.010) Referral Organization [facility] [place] Referring Provider First Name Ignacio Referring Provider Last Name Emeterio Referring Provider Specialty Family Medicine Referred Provider Gilbert Sun Referred Provider Specialty Gastroenterology Referral Priority Routine Reason ? biopsy Diagnosis 1 Palpable mass of neck (R22.1 ) Referral Organization [facility] [place] Referring Provider First Name Ignacio Referring Provider Last Name Emeterio Referring Provider Specialty Family Medicine Referred Provider Disha ENTKeyonna Referred Provider Specialty Otolaryngology Referral Priority Routine VITAL SIGNS Weight 154 lbs Sep, Height 5'8" in Sep, BMI 23.41 kg/m2 Sep, Heart Rate 65 /min Sep, Respiratory Rate 18 /min Sep, Temperature 98.1 degrees Fahrenheit Sep, Oximetry 99 Sep, Blood pressure systolic 144 mm Hg Sep, Blood pressure diastolic 78 mm Hg Sep, MEDICATIONS Medication SIG (Take, Route, Frequency, Duration) Notes Start Da te End Date Status Omeprazole 40 mg 1 capsule Orally Once a day for 90 days 0 8 Jan, 2014 Active Ibuprofen 800 MG 1 tablet Orally Three times a day as needed for 30 days June, Not-Taking Pravastatin Sodium 20 MG 1 tablet Orally Once a day for 30 Active PROCEDURES No Information RESULTS No Results REASON FOR VISIT [facility] abd pain MEDICAL (GENERAL) HISTORY Type Description Date Medical History GERD Medical History Hyperlipidemia - LDL 180s, s topped taking atorva 06/26 due to knee pain (resolved after stopped atorva) Medical History Allergic rhinitis Medical History Palpitations - very infreque nt - seen by cardiology, thought due to high caffeine intake. 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 NSAIDs) Surgical History hernia repair 2012 Surgical History Colonoscopy - Dr. Sun - benita se rrated polyp 2016 2006, 04/24 Surgical History knee 2017 Hospitalization History [facility] abd pain 09/17/20 Goals Section No Information Health Concerns No Information MEDICAL EQUIPMENT No Information MENTAL STATUS No Information FUNCTIONAL STATUS No Information ASSESSMENTS Encounter Date Diagnosis Assessment Notes Treatment Notes Treatm ent Clinical Notes Sep, Idiopathic acute pancreatiti s without infection or necrosis (ICD-10 - K85.00) no causative factor identifed Sep, Duodenal ulcer (ICD-10 - K26.9) seen on CT scan from admission. Will refer for EGD Sep, History of adenomatous polyp of colon (ICD-10 - Z86.010) Sep, Palpable mass of neck (ICD-10 - R22.1) PLAN OF TREATMENT Treatment Notes Assessment Notes Clinical Notes Idiopathic acute pancreatitis without infection or necrosis no causative factor identifed Duodenal ulcer seen on CT scan from admission. Will refer for EGD Referrals Referral Date Details EGD/Gilbert villegas ? biopsy, [facility] Next Appt Details 6 Months Reason: Provider Name:Ignacio Emeterio, 2021-03 10:45:00 AM, [address], , [place], [id number], Insurance Providers Payer Name Payer Address Payer Phone Insured Name Patient Relati onship to Insured Coverage Start Date Coverage End Date [facility] [address] [facility] [id number] [phone] HANY CONN self
--- OUTSIDE RECORDS SUMMARY | 2020-12-16 09:56 | CCD | Continuity of Care Document ---
Author Author Wicho GARZA MD Organization Unknown Address [address] [place] [address] Phone [phone] Care Team Providers Care Cutter Aluminum Sheet Name Role Phone Ignacio Storm MD AUTM [phone] Problems Active Problems Provider Date Osteoarthritis of right knee joint Onset : 06/18/2018 Social History Type Date Description Comments Sex Unknown ETOH Use Occasionally consumes alcohol Tobacco Use Start: Unknown Patient is a current smoker, smo kes some days Allergies and adverse reactions Active Allergies Criticality Reaction | Severity Comments Date Penicillin Unable to assess criticality 07/24/2015 Medications Active Medications SIG Qnty Indications Ordering Provide r Date Medrol 4mg Tablets dose lavinia, take as directed on sheet 1tabs M17.11 Miguel Abarca MD 06/24/2018 Tylenol With Codeine #3 300-30mg T ablets 3 times a day 9tabs M17.11 Miguel Abarca MD 06/24/2018 Meloxicam 15mg Tablets 1 by mouth every day comp 30tabs M17.11 Jaun More MD 01/12/2018 Atorvastatin Calcium 40mg Tablets 1 by mouth every day Unknown Omeprazole 40mg Capsules DR 1 by mouth every day Unknown Aspir-81 81mg Tablets ever y day Unknown Aspirin [address] [place] 30tabs Unknown [facility] D3 400Unit Capsules Daily Unknown Omeprazole 40mg Capsules DR Cecelia benites Unknown Immunizations Description No Information Available Vital Signs Date Vital Result Comment 09/21/2017 12:58pm Body Temperature 99.0 F Height 67 inches 5'7" Weight 194.00 lb BMI (Body Mass Index) 30.4 kg/m2 10/16/2016 8:15am Body Temperature 97.0 F Height 67 inches 5'7" Weight 190.00 lb BMI (Body Mass Index) 29.8 kg/m2 Results Description No Information Available Procedures Date Code Description Status 04/2016 51417501 Colonoscopy Completed Medical Devices Description No Information Available Encounters Description No Information Available Assessments Description No Information Available Plan of Treatment 06/27/2018 - Ayah More PA-C* M17.11 Unilateral primary osteoarthritis, right knee* Follow up:* prn Functional Status Description No Information Available Mental Status Description No Information Available Referrals Description No Information Available
--- OUTSIDE RECORDS SUMMARY | 2020-12-16 09:56 | CCD | Continuity of Care Document ---
Author Author Wicho SUN M.D. Organization Unknown Address [address] [place] [address] Phone [phone] Care Team Providers Care Lining Folder Name Role Phone Ignacio Storm M.D. AUTM [phone] Problems Active Problems Provider Date Screening for malignant neoplasm of colon Gilbert foss M.D. Onset: 03/24/2016 Social History Type Date Description Comments Sex Unknown ETOH Use Occasionally Tobacco Use Start: Unknown End: Unknown Patient is a former smoker Allergies, Adverse Reactions, Alerts Active Allergies Criticality Reaction | Severity Comments Date Penicillins Unable to assess criticality 03/24/2016 Medications Active Medications SIG Qnty Indications Ordering Provide r Date Suprep Bowel Prep Kit 17.5-3.13-1.6GM/177ML Solution use as directed 354ml Gilbert Sun M.D. 10/24/2020 Omeprazole 40mg Capsules Ignacio Call M.D. Pravastatin Sodium 20mg Tablets Take One Tablet By Mouth Every Day Unknown Immunizations Description No Information Available Vital Signs Date Vital Result Comment 10/24/2020 3:12pm Height 68.5 inches 5'8.50" Weight 158.00 lb BP Systolic 110 mmHg BP Diastolic 72 mmHg Heart Rate 60 /min BMI (Body Mass Index) 23.7 kg/m2 Weight 71.669 kg Body Temperature 97.7 F 03/24/2016 1:16pm Height 68.5 inches 5'8.50" Weight 198.00 lb BP Systolic 116 mmHg BP Diastolic 86 mmHg Heart Rate 74 /min BMI (Body Mass Index) 29.7 kg/m2 Weight 89.813 kg Results Description No Information Available Procedures Date Code Description Status 10/24/2020 58063 Office/Outpatient New Low MDM 30 -44 Minutes Completed Medical Devices Description No Information Available Encounters Type Date Location Provider Dx Diagnosis Office Visit 10/24/2020 3:00p Main Office Gilbert Sun M.D. K 63.5 Polyp of colon R10.10 Upper abdominal pain, unspec ified Assessments Date Code Description Provider 10/24/2020 K63.5 Polyp of colon Gilbert blackwell M.D. 10/24/2020 R10.10 Abdominal pain Gilbert blackwell M.D. Plan of Treatment Future Appointment(s):* 12/16/2020 9:45 am - Gilbert Sun M.D. at Main Office 10/24/2020 - Gilbert Sun M.D.* K63.5 Polyp of colon* Comments:* 64 yo wm who presents for a colonoscopy/egd due to a h/o colonic polyps/egd for abdominal pain r/o pud. Last scope was in 2016. No c/o abdominal pain, weight loss, change in bowel habits, or rectal bleeding. No family h/o colon cancer. No h/o chest pain, or sob. Plan:1. Colonoscopy + egd.2. Informed consent. * R10.10 Abdominal pain* Comments:* Above. Functional Status Description No Information Available Mental Status Description No Information Available Referrals Description No Information Available
--- OUTSIDE RECORDS SUMMARY | 2020-12-16 09:56 | CCD | Continuity of Care Document ---
Author Author Wicho GARZA MD Organization Unknown Address [address] [place] [address] Phone [phone] Care Team Providers Care Supervisor Fish Processing Name Role Phone Ignacio Storm MD AUTM [phone] Problems Active Problems Provider Date Osteoarthritis of [...] Available Procedures Date Code Description Status 04/2016 53731178 Colonoscopy Completed Medical Devices Description No Information Available Encounters Description No Information Available Assessments Description No Information Available Plan of Treatment 06/27/2018 - Ayah More PA-C* M17.11 Unilateral primary osteoarthritis, right knee* Follow up:* prn Functional Status Description No Information Available Mental Status Description No Information Available Referrals Description No Information Available
--- OUTSIDE RECORDS SUMMARY | 2020-12-16 09:56 | CCD | Continuity of Care Document ---
Author Author Wicho SMITH MD Organization Unknown Address [address] [place] [address] [address] [place] [address] Phone [phone] Care Team Providers Care Analog Ic Design Architect Name Role Phone Ignacio Storm M.D. AUTM [phone] Lesa Stanton AUTM [phone] Problems Active Problems Provider Date Essential hypertension Jeovany Dickerson MD Onset: 04/13/2018 Mixed conductive and sensorineural hearing loss of right ear Jeovany Dickerson MD Onset: 05/31/2018 Sensorineural hearing loss in left ear Jeovany Dickerson MD O nset: 05/31/2018 Bilateral tinnitus Jeovany Dickerson MD Onset: 05/31/2018 Obstructive sleep apnea syndrome Myriam Bradley, N.P. Onset: 05/31/2018 Tobacco use Myriam Bradley, N.P. Onset: 05/31/2018 Social History Type Date Description Comments Sex Unknown Tobacco Use Start: Unknown Current Cigar Smoker 1 Daily Smoking Status Reviewed: 09/13/20 Current Cigar Smoker 1 Daily ETOH Use Sociable Tobacco Use Start: Unknown End: Unknown Patient is a former smoker Allergies, Adverse Reactions, Alerts Active Allergies Criticality Reaction | Severity Comments Date Penicillin Unable to assess criticality 11/10/2017 Medications Active Medications SIG Qnty Indications Ordering Provide r Date Omeprazole 40mg Capsules DR 1 by mouth every day Unknown CPAP + Unknown Pravastatin Sodium 20mg Tablets Ignacio Storm M.D. Medications Administered in Office Medication SIG Qnty Indications Ordering Provider Date Covid-19 vaccine, Unspecified Inj ection Unknown 05/28/2020 Covid-19 vaccine, Unspecified Inj ection Unknown 04/30/2020 Immunizations Description No Information Available Vital Signs Date Vital Result Comment 10/22/2020 8:29am Height 68 inches 5'8" Weight 157.38 lb BMI (Body Mass Index) 23.9 kg/m2 Ola Body Weight 154 lb Weight 71.385 kg BSA (Body Surface Area) 1.85 m2 09/13/2020 9:59am BP Systolic 110 mmHg BP Diastolic 72 mmHg Heart Rate 78 /min O2 % BldC Oximetry 98 % Room Air Height 68 inches 5'8" Weight 151.00 lb BMI (Body Mass Index) 23.0 kg/m2 Ola Body Weight 154 lb Weight 68.494 kg BSA (Body Surface Area) 1.81 m2 Results Description No Information Available Procedures Date Code Description Status 09/13/2020 46647 Office/Outpatient Established Lo w MDM 20-29 Min Completed 05/31/2020 00883 Office/Outpatient Established Lo w MDM 20-29 Min Completed Medical Devices Description No Information Available Encounters Type Date Location Provider Dx Diagnosis Office Visit 09/13/2020 10:15a [facility] Pulmonary/Thoracic Billy Bradley, N.P. G47.33 Obstructive sleep apnea (adult) (pediatr ic) Office Visit 05/31/2020 11:45a [facility] Pulmonary/Thoracic Billy Bradley, N.P. G47.33 Obstructive sleep apnea (adult) (pediatr ic) Z91.19 Patient's noncompliance w ot h medical treatment and regimen Assessments Date Code Description Provider 09/13/2020 G47.33 Obstructive sleep apnea (adult) (pediatric) Myriam Braldey, N.P. 05/31/2020 G47.33 Obstructive sleep apnea (adult) (pediatric) Myriam Bradley, N.P. 05/31/2020 Z91.19 Patient's noncomplia nce with other medical treatment and regimen Myriam Bradley, N.P. Plan of Treatment Future Appointment(s):* 10/29/2020 9:50 am - Chetan Smith MD at [facility] * 09/15/2021 9:15 am - Myriam Bradley N.Lucian at [facility] Pulmonary/Thoracic Functional Status Description No Information Available Mental Status Description No Information Available Referrals Description No Information Available
--- OUTSIDE RECORDS SUMMARY | 2020-12-16 09:56 | CCD | Continuity of Care Document ---
Author Author Wicho SMITH MD Organization Unknown Address [address] [place] [address] [address] [place] [address] Phone [phone] Care Team Providers Care Tile Layer Helper Name Role Phone Ignacio Storm M.D. AUTM [phone] Lesa Stanton AUTM [phone] Problems Active Problems Provider Date Essential hypertension [...] Available Vital Signs Date Vital Result Comment 10/29/2020 9:57am Height 68 inches 5'8" Weight 158.00 lb BMI (Body Mass Index) 24.0 kg/m2 [place] Body Weight 154 lb Weight 71.669 kg BSA (Body Surface Area) 1.85 m2 10/22/2020 8:29am Height 68 inches 5'8" Weight 157.38 lb BMI (Body Mass Index) 23.9 kg/m2 [place] Body Weight 154 lb Weight 71.385 kg BSA (Body Surface Area) 1.85 m2 Results Test Acquired Date Facility Test Result H/L Range Note Laboratory test finding 10/22/2020 [facility] Main Lab [address] [place] [address] [phone] Non Trade Embalmer/Cytology Req For Servi (SEE NOTE) 1 1 SPECIMEN: FNA of right neck mass, angle of the mandible Prepared slides and cytolyt-clear received SPECIMEN ADEQUACY: Satisfactory for evaluation CATEGORIZATION: No Malignancy identified DESCRIPTIONS: Specimen consists of sheets of oncocytes in a background of lymphocytes, lymphocytic tangles, and debris. Suggestive of Warthins tumor. COMMENTS: 10/23/2020 - 0823 Signed GUICHO PEDERSON (ASCP) 10/23/2020 0823 (Prelim) Signed ANTONIA MARCIAL MD 10/23/2020 0925 Procedures Date Code Description Status 10/29/2020 75956 Office/Outpatient Established Lo w MDM 20-29 Min Completed 10/22/2020 56227 Office/Outpatient Established Lo w MDM 20-29 Min Completed 10/22/2020 67611 Fine Needle Aspiration Biopsy In lcd Ultrasound Guidance Completed 09/13/2020 98676 Office/Outpatient Established Lo w MDM 20-29 Min Completed 05/31/2020 39921 Office/Outpatient Established Lo w MDM 20-29 Min Completed Medical Devices Description No Information Available Encounters Type Date Location Provider Dx Diagnosis Office Visit 10/29/2020 9:50a [facility] Chetan Smith MD 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 G47.33 Obstructive sleep apnea (adult) (pediatr ic) Office Visit 05/31/2020 11:45a [facility] Pulmonary/Thoracic Billy Bradley, N.P. 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 05/31/2020 G47.33 Obstructive sleep apnea (adult) (pediatric) Myriam Bradley, N.P. 05/31/2020 Z91.19 Patient's noncomplia nce with other medical treatment and regimen Myriam Bradley, N.P. Plan of Treatment Future Appointment(s):* 09/15/2021 9:15 am - Myriam Bradley, N.P. 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
--- OUTSIDE RECORDS SUMMARY | 2020-12-16 09:56 | CCD | Continuity of Care Document ---
Author Author Wicho SMITH MD Organization Unknown Address [address] [place] [address] [address] [place] [address] Phone [phone] Care Team Providers Care Porter Baggage Name Role Phone Ignacio Storm M.D. AUTM [phone] Lesa Stanton AUTM [phone] Problems Active Problems Provider Date Essential hypertension [...] lb BMI (Body Mass Index) 24.0 kg/m2 [place] [facility] Weight 154 lb Weight 71.669 kg BSA (Body Surface Area) 1.85 m2 10/22/2020 8:29am Height 68 inches 5'8" Weight 157.38 lb BMI (Body Mass Index) 23.9 kg/m2 [facility] [facility] Weight 154 lb Weight 71.385 kg BSA (Body Surface Area) 1.85 m2 Results Test Acquired Date Facility Test Result H/L Range Note Laboratory test finding 10/22/2020 [facility] Main Lab [address] [place] [address] [phone] Non Supervisor Extrusion/Cytology Req For Servi (SEE NOTE) 1 1 [...] 0925 Procedures Date Code Description Status 10/29/2020 31025 Office/Outpatient Established Lo w MDM 20-29 Min Completed 10/22/2020 34609 Office/Outpatient Established Lo w MDM 20-29 Min Completed 10/22/2020 07990 Fine Needle Aspiration Biopsy In lcd Ultrasound Guidance Completed 09/13/2020 09061 Office/Outpatient Established Lo w MDM 20-29 Min Completed 05/31/2020 67236 Office/Outpatient Established Lo w MDM 20-29 Min Completed Medical Devices Description No Information Available Encounters Type Date Location Provider Dx Diagnosis Office Visit 10/29/2020 9:50a [facility] Chetan Smith MD 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 G47.33 Obstructive sleep apnea (adult) (pediatr ic) Office Visit 05/31/2020 11:45a [facility] Billy Bradley, N.P. G47.33 Obstructive sleep [...] 9:15 am - Myriam Bradley, N.P. 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
--- OUTSIDE RECORDS SUMMARY | 2020-12-16 09:56 | CCD | Continuity of Care Document ---
Author Author Wicho SMITH MD Organization Unknown Address [address] [place] [address] [address] [place] [address] Phone [phone] Care Team Providers Care Secretary Administrative Assistant Name Role Phone Ignacio Storm M.D. AUTM [phone] Lesa Stanton AUTM [phone] Problems Active Problems Provider Date Essential hypertension [...] lb BMI (Body Mass Index) 24.0 kg/m2 [facility] Weight 154 lb Weight 71.669 kg BSA (Body Surface Area) 1.85 m2 10/22/2020 8:29am Height 68 inches 5'8" Weight 157.38 lb BMI (Body Mass Index) 23.9 kg/m2 [facility] Weight 154 lb Weight 71.385 kg BSA (Body Surface Area) 1.85 m2 Results Test Acquired Date Facility Test Result H/L Range Note Laboratory test finding 10/22/2020 [facility] Main Lab [address] [place] [address] [phone] Non Manager Mall/Cytology Req For Servi (SEE NOTE) 1 1 [...] 0925 Procedures Date Code Description Status 10/29/2020 18032 Office/Outpatient Established Lo w MDM 20-29 Min Completed 10/22/2020 95248 Office/Outpatient Established Lo w MDM 20-29 Min Completed 10/22/2020 98904 Fine Needle Aspiration Biopsy In lcd Ultrasound Guidance Completed 09/13/2020 51438 Office/Outpatient Established Lo w MDM 20-29 Min Completed 05/31/2020 32737 Office/Outpatient Established Lo w MDM 20-29 Min Completed Medical Devices Description No Information Available Encounters Type Date Location Provider Dx Diagnosis Office Visit 10/29/2020 9:50a [facility] Chetan Smith MD 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 G47.33 Obstructive sleep apnea (adult) (pediatr ic) Office Visit 05/31/2020 11:45a [facility]Th[facility]acic Billy Bradley, N.P. G47.33 Obstructive [...] 9:15 am - Myriam Bradley, N.P. 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
--- OUTSIDE RECORDS SUMMARY | 2020-12-16 09:56 | CCD | Continuity of Care Document ---
Author Author Wicho GARZA MD Organization Unknown Address [address] [place] [address] Phone [phone] Care Team Providers Care Banquet Server Name Role Phone Ignacio Storm MD AUTM [phone] Problems Active Problems Provider Date Osteoarthritis of [...] Available Procedures Date Code Description Status 04/2016 75540104 Colonoscopy Completed Medical Devices Description No Information Available Encounters Description No Information Available Assessments Description No Information Available Plan of Treatment 06/27/2018 - Ayah More PA-C* M17.11 Unilateral primary osteoarthritis, right knee* Follow up:* prn Functional Status Description No Information Available Mental Status Description No Information Available Referrals Description No Information Available
--- OUTSIDE RECORDS SUMMARY | 2020-12-16 09:56 | CCD | Continuity of Care Document ---
Author Author Wicho SMITH MD Organization Unknown Address [address] [place] [address] [address] [place] [address] Phone [phone] Care Team Providers Care Hat Designer Name Role Phone Ignacio Storm M.D. AUTM [phone] Lesa Stanton AUTM [phone] Problems Active Problems Provider Date Essential hypertension [...] lb BMI (Body Mass Index) 23.9 kg/m2 [facility] [facility] Weight 154 lb Weight 71.385 kg BSA (Body Surface Area) 1.85 m2 09/13/2020 9:59am BP Systolic 110 mmHg BP Diastolic 72 mmHg Heart Rate 78 /min O2 % BldC Oximetry 98 % Room Air Height 68 inches 5'8" Weight 151.00 lb BMI (Body Mass Index) 23.0 kg/m2 [facility] [facility] Weight 154 lb Weight 68.494 kg BSA (Body Surface Area) 1.81 m2 Results Test Acquired Date Facility Test Result H/L Range Note Laboratory test finding 10/22/2020 [facility] Main Lab [address] [place], [place] [id number] [phone] Non Medical Records Administrator/Cytology Req For Servi (SEE NOTE) 1 1 SPECIMEN: FNA of right neck mass, angle of the mandible Prepared slides and cytolyt-clear received SPECIMEN ADEQUACY: Satisfactory for evaluation CATEGORIZATION: No Malignancy identified DESCRIPTIONS: Specimen consists of sheets of oncocytes in a background of lymphocytes, lymphocytic tangles, and debris. Suggestive of [place] tumor. COMMENTS: 10/23/2020 - 08 Signed GUICHO PEDERSON (ASCP) 10/23/2020 0823 (Prelim) Signed ANTONIA MARCIAL MD 10/23/2020 0925 Procedures Date Code Description Status 10/22/2020 53761 Office/Outpatient Established Lo w MDM 20-29 Min Completed 10/22/2020 72174 Fine Needle Aspiration W/O Imag Completed 09/13/2020 87226 Office/Outpatient Established Lo w MDM 20-29 Min Completed 05/31/2020 78837 Office/Outpatient Established Lo w MDM 20-29 Min Completed Medical Devices Description No Information Available Encounters Type Date Location Provider Dx Diagnosis Office Visit 10/22/2020 8:40a [facility] Chetan Smith MD 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
--- OUTSIDE RECORDS SUMMARY | 2020-12-16 09:56 | CCD | Continuity of Care Document ---
Author Author Wicho SMITH MD Organization Unknown Address [address] [place] [address] [address] [place] [address] Phone [phone] Care Team Providers Care Cross Tie Maker Name Role Phone Ignacio Storm M.D. AUTM [phone] Lesa Stanton AUTM [phone] Problems Active Problems Provider Date Essential hypertension [...] lb BMI (Body Mass Index) 24.0 kg/m2 [facility] Body Weight 154 lb Weight 71.669 kg BSA (Body Surface Area) 1.85 m2 10/22/2020 8:29am Height 68 inches 5'8" Weight 157.38 lb BMI (Body Mass Index) 23.9 kg/m2 [facility] Body Weight 154 lb Weight 71.385 kg BSA (Body Surface Area) 1.85 m2 Results Test Acquired Date Facility Test Result H/L Range Note Laboratory test finding 10/22/2020 [facility] Main Lab [address] [place] [address] [phone] Non Jewel Waxer/Cytology Req For Servi (SEE NOTE) 1 1 [...] 0925 Procedures Date Code Description Status 10/22/2020 72723 Office/Outpatient Established Lo w MDM 20-29 Min Completed 10/22/2020 35991 Fine Needle Aspiration W/O Imag Completed 09/13/2020 29431 Office/Outpatient Established Lo w MDM 20-29 Min Completed 05/31/2020 94026 Office/Outpatient Established Lo w MDM 20-29 Min Completed Medical Devices Description No Information Available Encounters Type Date Location Provider Dx Diagnosis Office Visit 10/22/2020 8:40a [facility] Chetan Smith MD 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 G47.33 Obstructive sleep apnea (adult) (pediatr ic) Office Visit 05/31/2020 11:45a [facility]Th[facility]acic Billy Bradley N.PWilliam G47.33 Obstructive sleep apnea (adult) (pediatr ic) [...] with other medical treatment and regimen Myriam Bradley N.Lucian Plan of Treatment Future Appointment(s):* 09/15/2021 9:15 am - Myriam Bradley N.Lucian at [facility] Pulmonary/Thoracic Functional Status Description No Information Available Mental Status Description No Information Available Referrals Description No Information Available
--- OUTSIDE RECORDS SUMMARY | 2020-12-16 09:57 | CCD ---
Author Author [facility] Organization [facility] Address Unknown Phone Unavailable Care Team Providers Care Ground Wirer Name Role Phone Ryan Sun MD Unavailable Unavailable Ryan Sun MD Unavailable Unavailable Ryan Sun MD Unavailable Unavailable Ryan Sun MD Unavailable Unavailable Ryan Sun MD Unavailable Unavailable Ryan Sun MD Unavailable Unavailable Ryan Sun MD Unavailable Unavailable Ryan Sun MD Unavailable Unavailable Ryan Sun MD Unavailable Unavailable Ryan Sun MD Unavailable Unavailable Ryan Sun MD Unavailable Unavailable Ryan Sun MD Unavailable Unavailable Ryan Sun MD Unavailable Unavailable Ryan Sun MD Unavailable Unavailable Ryan Sun MD Unavailable Unavailable Ryan Sun MD Unavailable Unavailable Ryan Sun MD Unavailable Unavailable Ryan Sun MD Unavailable Unavailable Ryan Sun MD Unavailable Unavailable Ryan uSn MD Unavailable Unavailable Ryan Sun MD Unavailable Unavailable Ryan Sun MD Unavailable Unavailable Ryan Sun MD Unavailable Unavailable Ryan Sun MD Unavailable Unavailable Ryan Sun MD Unavailable Unavailable CorinneRyan MD Unavailable Unavailable CorinneRyan MD Unavailable Unavailable CorinneRyan MD Unavailable Unavailable CorinneRyan MD Unavailable Unavailable CorinneRyan MD Unavailable Unavailable CorinneRyan MD Unavailable Unavailable CorinneRyan MD Unavailable Unavailable Corinne S Gilbert SUN Unavailable Unavailable Corinne S Gilbert SUN Unavailable Unavailable CorinneRyan MD Unavailable Unavailable Corinne S Gilbert SUN Unavailable Unavailable Corinne S Gilbert SUN Unavailable Unavailable Corinne S Gilbert SUN Unavailable Unavailable Corinne S Gilbert SUN Unavailable Unavailable Corinne S Gilbert SUN Unavailable Unavailable Ryan Sun MD Unavailable Unavailable Ryan Sun MD Unavailable Unavailable Ryan Sun MD Unavailable Unavailable Ryan Sun MD Unavailable Unavailable Ryan Sun MD Unavailable Unavailable Ryan Sun MD Unavailable Unavailable Ryan Sun MD Unavailable Unavailable Ryan Sun MD Unavailable Unavailable Ryan uSn MD Unavailable Unavailable Ryan Sun MD Unavailable Unavailable Chetan Smith MD Unavailable Unavailable Chetan Smith MD Unavailable Unavailable Chetan Smith MD Unavailable Unavailable Chetan Smith MD Unavailable Unavailable Chetan Smith MD Unavailable Unavailable Chetan Smith MD Unavailable Unavailable Chetan Smith MD Unavailable Unavailable Chetan Smith MD Unavailable Unavailable Chetan Smith MD Unavailable Unavailable Chetan Smith MD Unavailable Unavailable Chetan Smith MD Unavailable Unavailable Chetan Smith MD Unavailable Unavailable Chetan Smith MD Unavailable Unavailable Chetan Smith MD Unavailable Unavailable Chetan Smith MD Unavailable Unavailable Chetan Smith MD Unavailable Unavailable Chetan Smith MD Unavailable Unavailable Chetan Smith MD Unavailable Unavailable Chetan Smith MD Unavailable Unavailable Chetan Smith MD Unavailable Unavailable Chetan Smith MD Unavailable Unavailable Chetan Smith MD Unavailable Unavailable Chetan Smith MD Unavailable Unavailable Chetan Smith MD Unavailable Unavailable Chetan Smith MD Unavailable Unavailable Chetan Smith MD Unavailable Unavailable Chetan Smith MD Unavailable Unavailable Chetan Smith MD Unavailable Unavailable Chetan mSith MD Unavailable Unavailable Chetan Smith MD Unavailable Unavailable Chetan Smith MD Unavailable Unavailable CRUZ, CHRISTOS CANELO ORACLE BPM CONSULTANT-C Unavailable Unavailable CRUZ, CHRISTOS CANELO ORACLE BPM CONSULTANT-C Unavailable Unavailable CRUZ, CHRISTOS CANELO ORACLE BPM CONSULTANT-C Unavailable Unavailable CRUZ, CHRISTOS CANELO ORACLE BPM CONSULTANT-C Unavailable Unavailable CRUZ, CHRISTOS CANELO ORACLE BPM CONSULTANT-C Unavailable Unavailable CRUZ, CHRISTOS CANELO ORACLE BPM CONSULTANT-C Unavailable Unavailable CRUZ, CHRISTOS CANELO ORACLE BPM CONSULTANT-C Unavailable Unavailable CRUZ, CHRISTOS CANELO ORACLE BPM CONSULTANT-C Unavailable Unavailable CRUZ, CHRISTOS CANELO ORACLE BPM CONSULTANT-C Unavailable Unavailable CRUZ, CHRISTOS CANELO ORACLE BPM CONSULTANT-C Unavailable Unavailable CRUZ, CHRISTOS CANELO ORACLE BPM CONSULTANT-C Unavailable Unavailable CRUZ, CHRISTOS CANELO ORACLE BPM CONSULTANT-C Unavailable Unavailable CRUZ, CHRISTOS CANELO ORACLE BPM CONSULTANT-C Unavailable Unavailable CRUZ, CHRISTOS CANELO ORACLE BPM CONSULTANT-C Unavailable Unavailable CRUZ, CHRISTOS CANELO ORACLE BPM CONSULTANT-C Unavailable Unavailable CRUZ, CHRISTOS CANELO ORACLE BPM CONSULTANT-C Unavailable Unavailable CRUZ, CHRISTOS CANELO ORACLE BPM CONSULTANT-C Unavailable Unavailable Re-disclosure Warning The records that you are about to access may contain information from federally-assisted alcohol or drug abuse programs. If such information is present, then the following federally mandated warning applies: This information has been disclosed to you from records protected by federal confidentiality rules (42 CFR part 2). The federal rules prohibit you from making any further disclosure of this information unless further disclosure is expressly permitted by the written consent of the person to whom it pertains or as otherwise permitted by 42 CFR part 2. A general authorization for the release of medical or other information is NOT sufficient for this purpose. The Federal rules restrict any use of the information to criminally investigate or prosecute any alcohol or drug abuse patient.The records that you are about to access may contain highly sensitive health information, the redisclosure of which is protected by Article 27-F of the [facility] Public Health law. If you continue you may have access to information: Regarding HIV / AIDS; Provided by facilities licensed or operated by the [facility] Office of Mental Health; or Provided by the [facility] Office for People With Developmental Disabilities. If such information is present, then the following [facility] mandated warning applies: This information has been disclosed to you from confidential records which are protected by state law. State law prohibits you from making any further disclosure of this information without the specific written consent of the person to whom it pertains, or as otherwise permitted by law. Any unauthorized further disclosure in violation of state law may result in a fine or intermediate sentence or both. A general authorization for the release of medical or other information is NOT sufficient authorization for further disc losure. Family History Family Member Name Family Member Gender Family Member Status Date o f Status Description Data Source(s) Unknown Unknown Problem MEDENT ([facility], ) Unknown Female Problem [facility] ([facility]) Unknown Female Problem MEDENT ([facility] ) Unknown Male Problem [facility]) Unknown Unknown Problem [facility] Encounters Encounter Providers Location Date Indications Data Source(s ) Outpatient Attender: Chetan Dickerson/Sarah/Migue/Reind l 10/29/2020 09:50:00 AM EDT [facility] Outpatient Attender: Gilbert Sun MD Main Office 10/24/2020 03:00:00 PM EDT MEDENT ([facility]) Outpatient Attender: Chetan Dickerson/Sarah/Migue/Reind l 10/22/2020 08:40:00 AM EDT MEDENT ([facility], ) Outpatient [address] [facility] [address] 09/17/2020 12:00:00 AM EDT eCW1 ([facility]) Outpatient Attender: CANELO Dickerson/Sarah/Migue/R eindl 09/13/2020 10:15:00 AM EDT MEDENT ([facility] ) Unknown [address] [address] 09/02/2020 12:00:00 AM EDT eCW1 ([facility]) Outpatient Attender: CANELO Dickerson/[place]/Migue/R eindl 05/31/2020 11:45:00 AM EDT MEDENT ([facility] Unknown [address] [address] 01/11/2020 12:00:00 AM EST eCW1 ([facility]) Outpatient [address] [facility] [address] 12/14/2019 12:00:00 AM EST eCW1 ([facility]) Immunizations Vaccine Date Status Description Data Source(s) COVID-19 VACCINE Moderna 05/28/2020 12:00:00 AM EDT completed [facility] Vaccine Series Complete: YESThis Data wa s Submitted to [facility] Via [facility]. COVID-19 VACCINE Moderna 04/30/2020 12:00:00 AM EDT completed [facility] Vaccine Series Complete: NOThis Data was Submitted to [facility] Via [employer]. influenza, recombinant, quadrIvalent,injectable, prese rvative free 12/14/2019 04:56:00 PM EST completed eCW1 ([facility]) influenza, recombinant, quadrIvalent,injectable, prese rvative free 12/14/2019 04:56:00 PM EST completed eCW1 ([facility]) influenza, recombinant, quadrIvalent,injectable, prese rvative free 12/14/2019 04:56:00 PM EST completed eCW1 ([facility]) influenza, recombinant, quadrIvalent,injectable, prese rvative free 12/14/2019 04:56:00 PM EST completed eCW1 ([facility]) Medications Medication Brand Name Start Date Product Form Dose Route Admi nistrative Instructions Pharmacy Instructions Status Indications Reaction Description Data Source(s) 40 mg 12/10/2020 12:00:00 AM EDT capsule,delayed release (DR/EC) 90 TAKE ONE CAPSULE BY MOUTH EVERY DAY TAKE ONE CAPSULE BY MOUTH EVERY DAY SOLD: 12/13/2020 [facility] SUPREP BOWEL PREP KIT 17.5-3.13-1.6 gram SODIUM, POTASSIUM,M AG SULFATES 12/02/2020 12:00:00 AM EDT recon soln 354 USE DIRECTED USE DIRECTED SOLD: 12/02/2020 [facility] 20 mg 11/05/2020 12:00:00 AM EDT tablet 30 TAKE ONE TABLET BY MOUTH EVERY DAY TAKE ONE TABLET BY MOUTH EVERY DAY SOLD: 11/06/2020 [facility] 20 mg 11/05/2020 12:00:00 AM EDT tablet 30 TAKE ONE TABLET BY MOUTH EVERY DAY TAKE ONE TABLET BY MOUTH EVERY DAY SOLD: 12/09/2020 [facility] Suprep Bowel Prep Kit Suprep Bowel Prep Kit 10/24/2020 12:00:00 AM EDT active [facility] ([facility]) 40 mg 09/17/2020 12:00:00 AM EDT capsule,delayed release (DR/EC) 90 TAKE ONE CAPSULE BY MOUTH EVERY DAY TAKE ONE CAPSULE BY MOUTH EVERY DAY SOLD: 09/17/2020 [facility] 20 mg 07/02/2020 12:00:00 AM EDT tablet 30 TAKE ONE TABLET BY MOUTH EVERY DAY TAKE ONE TABLET BY MOUTH EVERY DAY SOLD: 09/09/2020 [facility] 20 mg 07/02/2020 12:00:00 AM EDT tablet 30 TAKE ONE TABLET BY MOUTH EVERY DAY TAKE ONE TABLET BY MOUTH EVERY DAY SOLD: 08/08/2020 [facility] 20 mg 07/02/2020 12:00:00 AM EDT tablet 30 TAKE ONE TABLET BY MOUTH EVERY DAY TAKE ONE TABLET BY MOUTH EVERY DAY SOLD: 07/06/2020 [facility] 20 mg 07/02/2020 12:00:00 AM EDT tablet 30 TAKE ONE TABLET BY MOUTH EVERY DAY TAKE ONE TABLET BY MOUTH EVERY DAY SOLD: 10/07/2020 [facility] 40 mg 05/28/2020 12:00:00 AM EDT capsule,delayed release (DR/EC) 90 TAKE ONE CAPSULE BY MOUTH EVERY DAY TAKE ONE CAPSULE BY MOUTH EVERY DAY SOLD: 05/31/2020 [facility] Covid-19 vaccine, Unspecified 05/28/2020 12:00:00 AM EDT completed MEDENT ([facility], ) Medication administered onsite Covid-19 vaccine, Unspecified 04/30/2020 12:00:00 AM EDT completed MEDENT ([facility] Medication administered onsite 20 mg 01/13/2020 12:00:00 AM EST tablet 30 TAKE ONE TABLET BY MOUTH EVERY DAY TAKE ONE TABLET BY MOUTH EVERY DAY SOLD: 04/23/2020 [facility] 20 mg 01/13/2020 12:00:00 AM EST tablet 30 TAKE ONE TABLET BY MOUTH EVERY DAY TAKE ONE TABLET BY MOUTH EVERY DAY SOLD: 02/14/2020 [facility] 20 mg 01/13/2020 12:00:00 AM EST tablet 30 TAKE ONE TABLET BY MOUTH EVERY DAY TAKE ONE TABLET BY MOUTH EVERY DAY SOLD: 05/31/2020 [facility] 20 mg 01/13/2020 12:00:00 AM EST tablet 30 TAKE ONE TABLET BY MOUTH EVERY DAY TAKE ONE TABLET BY MOUTH EVERY DAY SOLD: 03/12/2020 [facility] 40 mg 11/15/2019 12:00:00 AM EDT capsule,delayed release (DR/EC) 90 TAKE ONE CAPSULE BY MOUTH EVERY DAY TAKE ONE CAPSULE BY MOUTH EVERY DAY SOLD: 02/14/2020 [facility] 40 mg 11/15/2019 12:00:00 AM EDT capsule,delayed release (DR/EC) 90 TAKE ONE CAPSULE BY MOUTH EVERY DAY TAKE ONE CAPSULE BY MOUTH EVERY DAY SOLD: 11/20/2019 [facility] 20 mg 06/06/2019 12:00:00 AM EDT tablet 30 TAKE ONE TABLET BY MOUTH EVERY DAY TAKE ONE TABLET BY MOUTH EVERY DAY SOLD: 11/01/2019 [facility] Insurance Providers Payer name Policy type / Coverage type Policy ID Covered constitution party ID Covered constitution party's relationship to bass Policy Bass Plan Information State Ins Fund () Workers Compensation [id number] Self State Ins Fund () Workers Compensation [id number] Self [id number] [facility] [id number] SP [id number] [facility] [id number] [facility] [id number] Self [id number] [facility] [id number] Self [id number] [facility] [id number] Self [id number] [facility] Health Maintenance Organization (HMO) [id number] Self [id number] [facility] Health Maintenance Organization (HMO) [id number] Self [id number] [facility] Medigap Part B [id number] Self [id number] [facility] Med[facility]ap Part B [id number] [id number] Self [id number] [facility] Medigap Part B [id number] [id number] Self [id number] [facility] Medigap Part B [id number] 2..[id number] Self [id number] [facility] Medigap Part B [id number] Self [id number] [facility] Medigap Part B [id number] Self [id number] [facility] Med[facility] Part B [id number] 2..[id number] Self [id number] [facility] Health Maintenance Organization (HMO) [id number] 2..[id number] Self [id number] [facility] Medigap Part B [id number] Self [id number] [facility] [id number] SP [id number] [facility] [id number] SP [id number] [facility] [id number] Self [id number] [facility] Health Maintenance Organization (HMO) [id number] [id number] Self [id number] [facility] [id number] Self [id number] [facility] Health Maintenance Organization (O) [id number] Self [id number] [facility] Health Maintenance Organization (O) 8 [id number] [id number] Self [id number] [facility] [id number] [id number] Self [id number] [facility] [id number] [id number] Self [id number] [facility] [id number] [id number] Self [id number] [facility] [id number] [id number] Self [id number] [facility] B [id number] [id number] Self [id number] [facility] [id number] [id number] Self [id number] BCBS EMPIRE JUAN DIV [id number] SP [id number] [facility] Commercial [id number] [id number] Self [id number] [facility] [id number] 2..[id number] Self [id number] [facility] Part B [id number] Self STATE INSURANCE FUND [id number] SP [id number] [facility] Health Maintenance Organization (HMO) [id number] Self OTHER WORKERS COMPENSATION [id number] SP [id number] [facility] O [id number] S [id number] [facility] [id number] SP [id number] [facility] [facility] [place] [facility] Commercial [id number] Self [facility] Commercial [id number] Self BCBS EMPIRE JUAN DIV [id number] SP [id number] BCBS EMPIRE JUAN DIV [id number] SP [id number] SELF PAY UNAVAILABLE UNAVAILA BLE EMPIRE BLUE CROSS BLUE SHIELD - OP [id number] 18 [id number] BCBS EMPIRE JUAN DIV [id number] SP [id number] [facility] [id number] 18 [id number] MEDICARE [id number] SP [id number] [facility] [id number] SP [id number] BCBS EMPIRE JUAN DIV [id number] SP [id number] BCBS EMPIRE JUAN DIV [id number] SP [id number] [facility] [id number] SP [id number] [facility] Part B [id number] Self [id number] [facility] Part B [id number] Self [id number] [facility] [id number] Self [id number] STATE INSURANCE FUND [id number] SP [id number] [facility] Health Maintenance Organization (HMO) 8 [id number] Self [id number] [facility] Medigap Part B [id number] [id number] Self [id number] [facility] Health Maintenance Organization (HMO) [id number] Self [id number] [facility] DIV [id number] SP [id number] [facility] [id number] Self [id number] STATE INSURANCE FUND [id number] SP [id number] STATE INSURANCE FUND O [id number] S [id number] [facility] O [id number] S [id number] [facility] DIV [id number] SP [id number] [facility] [id number] Self [id number] Problems, Conditions, and Diagnoses Code Display Name Description Problem Type Effective Dates Data Source(s) Z86.010 [id number] History of adenomatous polyp of colon Pro blem 09/17/2020 12:00:00 AM EDT eCW1 ([facility]) K26.9 [id number] Duodenal ulcer Problem 09/17/2020 12:00:00 A M EDT eCW1 ([facility]) Z12.5 [id number] Screening for prostate cancer Problem 12/14/2019 12:00:00 AM EST eCW1 ([facility]) Z23 [id number] Encounter for immunization Problem 0 12:00:00 AM EST eCW1 ([facility]) Surgeries/Procedures Procedure Description Date Indications Data Source(s) OFFICE OUTPATIENT VISIT 15 MINUTES 10/29/2020 12:00:00 AM EDT MEDENT ([facility], ) OFFICE OUTPATIENT NEW 30 MINUTES 10/24/2020 12:00:00 A M EDT MEDENT ([facility]) Fine Needle Aspiration Biopsy Inlcd Ultrasound Guidance 10/22/2020 12:00:00 AM EDT MEDENT ([facility] OFFICE OUTPATIENT VISIT 15 MINUTES 10/22/2020 12:00:00 AM EDT MEDENT ([facility]) Fine Needle Aspiration W/O Imag 10/22/2020 12:00:00 AM EDT MEDENT ([facility]) OFFICE OUTPATIENT VISIT 15 MINUTES 09/13/2020 12:00:00 AM EDT MEDENT ([facility]) OFFICE OUTPATIENT VISIT 15 MINUTES 05/31/2020 12:00:00 AM EDT MEDENT ([facility]) Immunization: Flublok Quadrivalent (18 years & older) 0.5mL IM (Influenza) 12/14/2019 12:00:00 AM EST eCW1 ([facility]) Results ID Date Data Source [id number] 12/12/2020 09:50:00 AM EDT [facility] Name Value Range Interpretation Code Description Data Rachel rce(s) Supporting Document(s) SARS-CoV-2 (COVID-19) RNA [Presence] in Respiratory specimen by SHANNAN with probe detection Not Detected [facility] This lab was ordered by [facility] and reported by [employer] ID Date Data Source [id number] 10/22/2020 10:42:00 AM EDT MEDENT ([facility], ) Name Value Range Interpretation Code Description Data Rachel rce(s) Supporting Document(s) Microscopic observation [Identifier] in Unspecified specimen by Non- gynecological cytology method Laboratory test result [facility] ([facility]) SPECIMEN: FNA of right neck m ass, angle of the mandible Prepared slides and cytolyt-clear received SPECIMEN ADEQUACY: Satisfactory for evaluation CATEGORIZATION: No Malignancy identified DESCRIPTIONS: Specimen consists of sheets of oncocytes in a background of lymphocytes, lymphocytic tangles, and debris. Suggestive of Warthins tumor. COMMENTS: 10/23/2020 - 822 Signed GUICHO PEDERSON (ASCP) 10/23/2020 08 (Prelim) Signed ANTONIA MARCIAL MD 10/23/2020 09 ID Date Data Source [id number] 08/30/2020 02:42:00 AM EDT [facility] Name Value Range Interpretation Code Description Data Rachel rce(s) Supporting Document(s) SARS coronavirus 2 RNA [Presence] in Res piratory specimen by SHANNAN with probe detection NEGATIVE [facility] This lab was ordered by [facility] a nd reported by [facility]. Procedure Social History Code Duration Value Status Description Data Source(s ) Smoking 09/17/2020 12:00:00 AM EDT UNK completed eCW1 ([facility]) Smoking 12/14/2019 12:00:00 AM EST UNK completed eCW1 ([facility]) Smoking 12/14/2019 12:00:00 AM EST UNK completed eCW1 ([facility]) Smoking 12/14/2019 12:00:00 AM EST UNK completed eCW1 ([facility]) Vital Signs ID Date Data Source UNK Name Value Range Interpretation Code Description Data Source(s) Body height 68 [in_i] 68 [in_i] [facility] ([facility], ) 5'8" Body weight 158.00 [lb_av] 158.00 [lb_av] KENNEY Taylor ([facility]) Body mass index (BMI) [Ratio] 24.0 kg/m2 24.0 k g/m2 [facility] ([facility]) [employer] body weight 154 [lb_av] 154 [lb_av] KENNEY Taylor ([facility]) Body weight 71.669 kg 71.669 kg [facility] ([facility]) Body surface area Derived from formula 1.85 m2 1.85 m2 [facility] ([facility]) Body height 68.5 [in_i] 68.5 [in_i] [facility] 5'8.50" Body weight 158.00 [lb_av] 158.00 [lb_av] MEDEN T ([facility]) Systolic blood pressure 110 mm[Hg] 110 mm[Hg] M EDENT ([facility]) Diastolic blood pressure 72 mm[Hg] 72 mm[Hg] MEDENT ([facility]) Heart rate 60 /min 60 /min MEDENT ([facility]) Body mass index (BMI) [Ratio] 23.7 kg/m2 23.7 k g/m2 MEDENT ([facility]) Body weight 71.669 kg 71.669 kg [facility] ([facility] Body temperature 97.7 [degF] 97.7 [degF] MEDENT ([facility]) Body weight 71.385 kg 71.385 kg [facility] ([facility]) Body surface area Derived from formula 1.85 m2 1.85 m2 [facility] ([facility]) Body height 68 [in_i] 68 [in_i] [facility] ([facility]) 5'8" Body weight 157.38 [lb_av] 157.38 [lb_av] MEDEN T ([facility]) Body mass index (BMI) [Ratio] 23.9 kg/m2 23.9 k g/m2 [facility] ([facility]) [employer] body weight 154 [lb_av] 154 [lb_av] MEDEN T ([facility]) Body weight 154 [lb_av] 154 [lb_av] eCW1 ([facility]) Body height [in_i] eCW1 ([facility]) Body mass index (BMI) [Ratio] 23.41 kg/m2 23.41 kg/m2 eCW1 ([facility]) Heart rate 65 /min 65 /min eCW1 ([facility]) Respiratory rate 18 /min 18 /min eCW1 ([facility]) Body temperature 98.1 [degF] 98.1 [degF] eCW1 ( [facility]) Systolic blood pressure 144 mm[Hg] 144 mm[Hg] e CW1 ([facility]) Diastolic blood pressure 78 mm[Hg] 78 mm[Hg] eCW1 ([facility]) Diastolic blood pressure 72 mm[Hg] 72 mm[Hg] [facility] ([facility]) Heart rate 78 /min 78 /min [facility] ([facility] [facility]) Oxygen saturation in Arterial blood by Pulse oximetry 98 % 98 % [facility] ([facility]) Room Air Systolic blood pressure 110 mm[Hg] 110 mm[Hg] M [facility]ENT ([facility]) Body height 68 [in_i] 68 [in_i] [facility] ([facility]) 5'8" Body weight 151.00 [lb_av] 151.00 [lb_av] [facility] T ([facility]) Body mass index (BMI) [Ratio] 23.0 kg/m2 23.0 k g/m2 [facility] ([facility]) Body surface area Derived from formula 1.81 m2 1.81 m2 [facility] ([facility]) [employer] body weight 154 [lb_av] 154 [lb_av] [facility] Body weight 68.494 kg 68.494 kg [facility] ([facility]) Oxygen saturation in Arterial blood by Pulse oximetry 98 % 98 % [facility] ([facility]) Room Air Body height 68 [in_i] 68 [in_i] [facility] ([facility]) 5'8" Body weight 161.00 [lb_av] 161.00 [lb_av] [facility] T ([facility]) Body mass index (BMI) [Ratio] 24.5 kg/m2 24.5 k g/m2 [facility] ([facility]) [employer] body weight 154 [lb_av] 154 [lb_av] [facility] T ([facility]) Body weight 73.030 kg 73.030 kg [facility] ([facility]) Body surface area Derived from formula 1.86 m2 1.86 m2 [facility] ([facility]) Oxygen saturation in Arterial blood by Pulse oximetry 98 % 98 % [facility] ([facility]) Room Air Body height 68 [in_i] 68 [in_i] [facility] ([facility]) 5'8" Systolic blood pressure 108 mm[Hg] 108 mm[Hg] M [facility]ENT ([facility]) Diastolic blood pressure 70 mm[Hg] 70 mm[Hg] [facility] ([facility]) Heart rate 70 /min 70 /min [facility] ([facility]) Body weight 161.00 [lb_av] 161.00 [lb_av] [facility] T ([facility]) Body mass index (BMI) [Ratio] 24.5 kg/m2 24.5 k g/m2 [facility] ([facility]) [employer] body weight 154 [lb_av] 154 [lb_av] [facility] Body weight 73.030 kg 73.030 kg [facility] ([facility]) Body surface area Derived from formula 1.86 m2 1.86 m2 [facility] ([facility]) Body weight 158 [lb_av] 158 [lb_av] eCW1 ([facility]) Body height [in_i] eCW1 ([facility]) Body mass index (BMI) [Ratio] 24.02 kg/m2 24.02 kg/m2 eCW1 ([facility]) Heart rate 76 /min 76 /min eCW1 ([facility]) Respiratory rate 18 /min 18 /min eCW1 ([facility]) Body temperature 96.8 [degF] 96.8 [degF] eCW1 ( [facility]) Systolic blood pressure 132 mm[Hg] 132 mm[Hg] e CW1 ([facility]) Diastolic blood pressure 74 mm[Hg] 74 mm[Hg] eCW1 ([facility])
[2020-12-16] MEDS ORDERED: LIDOCAINE 2% 100MG/5ML SDV (FOR ANES.) As Ordered ONE (10:08)
[2020-12-16] MEDS ORDERED: propofoL 500 MG/50 ML VIAL As Ordered ONE (10:08)
[2020-12-16] MEDS ORDERED: fentaNYL 100 MCG/2 ML INJECTION (J3010) As Ordered ONE (10:36)
[2020-12-16] MEDS ORDERED: ePHEDrine SULFATE 25 MG/5 ML(5MG/ML) SYRINGE As Ordered ONE (11:16)
--- NOTE | 2020-12-16 11:20 | ROOR ---
Patient Name: Wicho Conn Procedure Date: 12/16/2020 11:02 AM Date of : 1955 Age: 65 Room: [facility] Gender: Male Note Status: Finalized Procedure: Upper Endoscopy + Biopsies Indications: Epigastric abdominal pain, Exclusion of ulcer of the GI tract Providers: Gilbert Sun MD Referring MD: Ignacio Storm MD Requesting Provider: Medicines: Monitored Anesthesia Care Complications: No immediate complications. Procedure: Pre-Anesthesia Assessment: - The heart rate, respiratory rate, oxygen saturations, blood pressure, adequacy of pulmonary ventilation, and response to care were monitored throughout the procedure. The Endoscope was introduced through the mouth, and advanced to the second part of duodenum. The upper GI endoscopy was accomplished without difficulty. The patient tolerated the procedure well. Findings: The Z-line was irregular and was found 40 cm from the incisors. Multiple biopsies were obtained with cold forceps for evaluation to rule out Tompkins's Esophagus randomly at the gastroesophageal junction. A small hiatal hernia was present. No other significant abnormalities were identified in a careful examination of the stomach. Biopsies were taken with a cold forceps in the gastric antrum for Helicobacter pylori testing. The exam of the duodenum was otherwise normal. Impression: - Z-line irregular, 40 cm from the incisors. - Small hiatal hernia. - Multiple biopsies were obtained at the gastroesophageal junction. - Biopsies were taken with a cold forceps for Helicobacter pylori testing. - The examination was otherwise normal. Recommendation: - Patient has a contact number available for emergencies. The signs and symptoms of potential delayed complications were discussed with the patient. Return to normal activities tomorrow. Written discharge instructions were provided to the patient. - High fiber diet. - Discharge patient to home. - Follow an antireflux regimen. - Continue present medications. - Await pathology results. - Telephone GI clinic for pathology results in 1 week. - Return to referring physician. - The findings and recommendations were discussed with the patient. Procedure Code(s): --- Professional --- 07517, Esophagogastroduodenoscopy, flexible, transoral; with biopsy, single or multiple Diagnosis Code(s): --- Professional --- K22.8, Other specified diseases of esophagus K44.9, Diaphragmatic hernia without obstruction or gangrene R10.13, Epigastric pain CPT copyright 2019 [employer]. All rights reserved. The codes documented in this report are preliminary and upon circular shear operator review may be revised to meet current compliance requirements. Gilbert Sun MD Gilbert Sun MD 12/16/2020 11:19:47 AM Electronically signed by Gilbert Sun MD Number of Addenda: 0 Note Initiated On: 12/16/2020 11:02 AM Estimated Blood Loss: Estimated blood loss: none.
--- NOTE | 2020-12-16 11:38 | ROOR ---
Patient Name: Wicho Conn Procedure Date: 12/16/2020 11:02 AM Date of : 1955 Age: 65 Room: [facility] Gender: Male Note Status: Finalized Procedure: Total Colonoscopy to Cecum + Biopsy Polypectomy Indications: High risk colon cancer surveillance: Personal history of colonic polyps, Last colonoscopy: 2016 Providers: Gilbert Sun MD Referring MD: Ignacio Storm MD Requesting Provider: Medicines: Monitored Anesthesia Care Complications: No immediate complications. Procedure: Pre-Anesthesia Assessment: - The heart rate, respiratory rate, oxygen saturations, blood pressure, adequacy of pulmonary ventilation, and response to care were monitored throughout the procedure. The Colonoscope was introduced through the anus and advanced to the cecum, identified by appendiceal orifice and ileocecal valve. The colonoscopy was performed without difficulty. The patient tolerated the procedure well. The quality of the bowel preparation was excellent. Findings: The perianal and digital rectal examinations were normal. Non-bleeding internal hemorrhoids were found during retroflexion. The hemorrhoids were small and Grade I (internal hemorrhoids that do not prolapse). Multiple small and large-mouthed diverticula were found in the recto-sigmoid colon, sigmoid colon and descending colon. A diminutive polyp was found in the cecum. The polyp was sessile. The polyp was removed with a cold biopsy forceps. Resection and retrieval were complete. A small polyp was found in the rectum. The polyp was sessile. The polyp was removed with a cold biopsy forceps. Resection and retrieval were complete. The exam was otherwise without abnormality on direct and retroflexion views. Impression: - Non-bleeding internal hemorrhoids. - Diverticulosis in the recto-sigmoid colon, in the sigmoid colon and in the descending colon. - One diminutive polyp in the cecum, removed with a cold biopsy forceps. Resected and retrieved. - One small polyp in the rectum, removed with a cold biopsy forceps. Resected and retrieved. - The examination was otherwise normal on direct and retroflexion views. - The exam was otherwise normal to the cecum. Recommendation: - Patient has a contact number available for emergencies. The signs and symptoms of potential delayed complications were discussed with the patient. Return to normal activities tomorrow. Written discharge instructions were provided to the patient. - High fiber diet. - Discharge patient to home. - Continue present medications. - Await pathology results. - Telephone GI clinic for pathology results in 1 week. - Return to referring physician. - The findings and recommendations were discussed with the patient. Procedure Code(s): --- Professional --- 26490, Colonoscopy, flexible; with biopsy, single or multiple Diagnosis Code(s): --- Professional --- Z86.010, Personal history of colonic polyps K64.0, First degree hemorrhoids K63.5, Polyp of colon K62.1, Rectal polyp K57.30, Diverticulosis of large intestine without perforation or abscess without bleeding CPT copyright 2019 [employer]. All rights reserved. The codes documented in this report are preliminary and upon spd manager review may be revised to meet current compliance requirements. Gilbert Sun MD Gilbert Sun MD 12/16/2020 11:37:38 AM Electronically signed by Gilbert Sun MD Number of Addenda: 0 Note Initiated On: 12/16/2020 11:02 AM Estimated Blood Loss: Estimated blood loss: none.
[2020-12-16 12:00] VITALS: BP 119/73
== END 2020-12-16 12:10 | disposition home or self-care (01) ==
LOC: M OPP 09:50
PROVIDERS: ATTEND Internal Medicine Gastroenterology
DX: Z12.11 Encounter for screening for malignant neoplasm of colon (principal); Z86.010 Personal history of colon polyps; K63.5 Polyp of colon; K64.0 First degree hemorrhoids; K62.1 Rectal polyp; K31.A19 Gastric intestinal metaplasia without dysplasia, unspecified site; K28.9 Gastrojejunal ulcer, unspecified as acute or chronic, without hemorrhage or perforation; K44.9 Diaphragmatic hernia without obstruction or gangrene; R10.13 Epigastric pain; Z79.899 Other long term (current) drug therapy; Z88.0 Allergy status to penicillin; Z87.891 Personal history of nicotine dependence
CPT/HCPCS: 43239; 45380; 88305; J3010

== ENCOUNTER → 2021-01-06 | Outpatient (CLI) | payer MEDICARE, BC, OTHER ==
[~2021-01-06] MED LIST changes: +ASPI81TA26 PO; -NS 1,000 ML IV ONE
== END ==
LOC: M LABSMTC 10:42
PROVIDERS: ATTEND Anesthesiology
DX: Z01.812 Encounter for preprocedural laboratory examination (principal); Z20.822 Contact with and (suspected) exposure to COVID-19

== ENCOUNTER 2021-01-28 15:26 | Emergency (ER) | payer MEDICARE, BC, OTHER ==
[~2021-01-28] VITALS: Ht 172.7 cm; Wt 72.7 kg
[~2021-01-28 15:26] MED LIST changes: -ASPI81TA26 PO
[2021-01-28 16:58] LABS: HEMATOCRIT 43.5 % (42.0-52.0); HEMOGLOBIN 14.8 g/dl (13.5-17.5); MEAN CORPUSCULAR HEMOGLOBIN 29.5 pg (27.0-33.0); MEAN CORPUSCULAR VOLUME 86.8 fl (80.0-96.0); PLATELET COUNT, AUTOMATED 211 10^3/uL (150-450); RED BLOOD COUNT 5.01 10^6/uL (4.30-6.10); WHITE BLOOD COUNT 6.6 10^3/uL (4.0-10.0)
[2021-01-28 17:26] LABS: BLOOD UREA NITROGEN 22 MG/DL (7-18); CALCIUM LEVEL 8.8 MG/DL (8.8-10.2); CARBON DIOXIDE LEVEL 28 MEQ/L (21-32); CHLORIDE LEVEL 107 MEQ/L (98-107); CREATININE FOR GFR 1.09 MG/DL (0.70-1.30); GLOMERULAR FILTRATION RATE > 60.0 (>49); GLUCOSE, FASTING 88 MG/DL (70-100); POTASSIUM SERUM 4.5 MEQ/L (3.5-5.1); SODIUM LEVEL 139 MEQ/L (136-145)
--- NOTE | 2021-01-28 17:39 | REP ---
INDICATION: AFib. COMPARISON: 08/30/2020 TECHNIQUE: Portable FINDINGS: The technique utilized in obtaining the radiograph has magnified the cardiac silhouette and accentuated the interstitial markings. Cardiomediastinal silhouette lung conroy are stable. The heart is not enlarged. No acute patchy parenchymal opacities or pleural effusions have developed. There is no change in the osseous structures. IMPRESSION: There is no evidence of acute cardiopulmonary disease. <Electronically signed by Dmitri Walsh > 01/28/21 [id number]
[2021-01-28] MEDS ORDERED: ASPIRIN 325 MG TAB PO ONE (18:55)
[2021-01-28 19:30] VITALS: BP 137/74
--- NOTE | 2021-01-28 19:31 | ECGEPIP ---
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
--- NOTE | 2021-01-28 19:33 | ECGEPIP ---
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
== END 2021-01-28 19:59 | disposition home or self-care (01) ==
LOC: M ED 15:26
DX: I48.0 Paroxysmal atrial fibrillation (principal); R00.1 Bradycardia, unspecified; K21.9 Gastro-esophageal reflux disease without esophagitis; E78.5 Hyperlipidemia, unspecified; G47.33 Obstructive sleep apnea (adult) (pediatric); Z79.899 Other long term (current) drug therapy; Z88.0 Allergy status to penicillin

== ENCOUNTER → 2021-03-19 | Outpatient (CLI) | payer MEDICARE, BC, OTHER ==
[~2021-03-19] MED LIST changes: +ASPI81TA26 PO
== END ==
LOC: M LABSMTC 10:18
PROVIDERS: ATTEND Anesthesiology
DX: Z01.812 Encounter for preprocedural laboratory examination (principal); Z20.822 Contact with and (suspected) exposure to COVID-19

== ENCOUNTER 2021-03-24 12:52 | Day surgery (SDC) | payer MEDICARE, BC, OTHER ==
[~2021-03-24] VITALS: Ht 172.7 cm; Wt 75.3 kg
[~2021-03-24 12:52] MED LIST changes: +NS 1,000 ML IV ONE
[2021-03-24] MEDS ORDERED: propofoL 200 MG/20 ML VIAL As Ordered ONE (15:56)
[2021-03-24] MEDS ORDERED: LIDOCAINE 2% MDV 20ML VIAL As Ordered ONE (15:56)
[2021-03-24 16:10] VITALS: BP 106/71
== END 2021-03-24 16:15 | disposition home or self-care (01) ==
LOC: M OPP 12:52
PROVIDERS: ATTEND Internal Medicine Gastroenterology
DX: K44.9 Diaphragmatic hernia without obstruction or gangrene (principal); K22.89 Other specified disease of esophagus; Z86.010 Personal history of colon polyps; K31.A19 Gastric intestinal metaplasia without dysplasia, unspecified site; Z79.82 Long term (current) use of aspirin; Z79.899 Other long term (current) drug therapy; Z88.0 Allergy status to penicillin; Z87.891 Personal history of nicotine dependence

== ENCOUNTER → 2021-04-25 | Outpatient (CLI) | payer MEDICARE, BC, OTHER ==
[~2021-04-25] MED LIST changes: -NS 1,000 ML IV ONE
== END ==
LOC: M LABSMTC 09:58
PROVIDERS: ATTEND Anesthesiology
DX: Z01.812 Encounter for preprocedural laboratory examination (principal); Z20.822 Contact with and (suspected) exposure to COVID-19

== ENCOUNTER 2021-04-30 06:56 | Day surgery (SDC) | payer MEDICARE, BC, OTHER ==
[~2021-04-30] VITALS: Ht 175.3 cm; Wt 73.9 kg
[~2021-04-30 06:56] MED LIST changes: +LR 1,000 ML IV ONE
[2021-04-30] MEDS ORDERED: MIDAZOLAM INJ 2MG/2ML VIAL (J2250 PER 1MG) As Ordered ONE (07:16)
[2021-04-30] MEDS ORDERED: ONDANSETRON 4MG/2ML VIAL As Ordered ONE (07:16)
[2021-04-30] MEDS ORDERED: ROCURONIUM BROMIDE 50 MG/5 ML VIAL As Ordered ONE (07:16)
[2021-04-30] MEDS ORDERED: propofoL 200 MG/20 ML VIAL As Ordered ONE (07:16)
[2021-04-30] MEDS ORDERED: dexameTHASONE 4 MG/ML 1ML VIAL (J1100 PER 1MG) As Ordered ONE (07:16)
[2021-04-30] MEDS ORDERED: LIDOCAINE 2% INJ 100 MG/5 ML SYRINGE As Ordered ONE (07:16)
[2021-04-30] MEDS ORDERED: ACETAMINOPHEN 1000MG 100ML IV BTL (OFIRMEV) (J0131 PER 10MG) As Ordered ONE (07:17)
[2021-04-30] MEDS ORDERED: fentaNYL 100 MCG/2 ML INJECTION As Ordered ONE (07:17)
[2021-04-30] MEDS ORDERED: KETOROLAC 60MG 2ML VIAL As Ordered ONE (07:17)
[2021-04-30] MEDS ORDERED: SUGAMMADEX SODIUM 500 MG/5 ML VIAL (BRIDION) As Ordered ONE (07:17)
[2021-04-30] MEDS ORDERED: LIDOCAINE W/EPINEPHRINE 1% 20ML VIAL As Ordered ONE (07:20)
[2021-04-30] MEDS ORDERED: BACITRACIN OINTMENT 30GM TUBE As Ordered ONE (07:20)
[2021-04-30] MEDS ORDERED: LIDOCAINE 2% 100MG/5ML SDV (FOR ANES.) As Ordered ONE (07:25)
[2021-04-30] MEDS ORDERED: GLYCOPYRROLATE INJ 0.2 MG/ML 2 ML VIAL As Ordered ONE ×2 (10:13→10:14)
[2021-04-30] MEDS ORDERED: PHENYLEPHRINE 10MG/ML 1ML VIAL (J2370 PER 1) As Ordered ONE (10:14)
[2021-04-30] MEDS ORDERED: HYDROMORPHONE HCL 0.5 MG/ 0.5 ML SYRINGE (J1170 PER 1) IV PRN (10:50)
[2021-04-30] MEDS ORDERED: ONDANSETRON 4MG/2ML VIAL IV PRN (10:50)
[2021-04-30] MEDS ORDERED: fentaNYL 100 MCG/2 ML INJECTION IV PRN (10:50)
[2021-04-30] MEDS ORDERED: oxyCODONE 5MG TAB PO PRN (10:50)
[2021-04-30] MEDS ORDERED: LR 1,000 ML IV SCH (10:50)
[2021-04-30 12:45] VITALS: BP 110/72
== END 2021-04-30 12:53 | disposition home or self-care (01) ==
LOC: M SDC 06:56
PROVIDERS: ATTEND Otolaryngology
DX: D11.9 Benign neoplasm of major salivary gland, unspecified (principal); E78.5 Hyperlipidemia, unspecified; I10 Essential (primary) hypertension; K21.9 Gastro-esophageal reflux disease without esophagitis; R06.83 Snoring; G47.30 Sleep apnea, unspecified; Z88.0 Allergy status to penicillin; Z79.899 Other long term (current) drug therapy; Z79.82 Long term (current) use of aspirin
CPT/HCPCS: 42410; 88305; J0131; J1100; J1885; J2250; J2370; J2405; J3010

== ENCOUNTER → 2022-04-08 | Outpatient (REF) | payer MEDICARE, OTHER ==
[~2022-04-08] MED LIST changes: -LR 1,000 ML IV ONE
[2022-04-08 16:22] LABS: HEMATOCRIT 44.9 % (42.0-52.0); HEMOGLOBIN 15.6 g/dl (13.5-17.5); MEAN CORPUSCULAR HEMOGLOBIN 30.5 pg (27.0-33.0); MEAN CORPUSCULAR HGB CONC 34.7 g/dl (32.0-36.5); MEAN CORPUSCULAR VOLUME 87.9 fl (80.0-96.0); PLATELET COUNT, AUTOMATED 233 10^3/uL (150-450); RED BLOOD COUNT 5.11 10^6/uL (4.30-6.10); WHITE BLOOD COUNT 6.5 10^3/uL (4.0-10.0)
[2022-04-08 16:43] LABS: ALBUMIN 3.4 G/DL (3.2-5.2); ALKALINE PHOSPHATASE 43 U/L (46-116); ALT/SGPT 19 U/L (7.0-40); AST/SGOT 17 U/L (<34); BILIRUBIN,TOTAL 0.6 MG/DL (0.3-1.2); BLOOD UREA NITROGEN 21 MG/DL (9-23); CALCIUM LEVEL 8.5 MG/DL (8.3-10.6); CARBON DIOXIDE LEVEL 30 MMOL/L (20-31); CHLORIDE LEVEL 107 MMOL/L (98-107); CHOLESTEROL LEVEL 180 MG/DL (<200); CHOLESTEROL RISK RATIO 5.78 (<5); CREATININE FOR GFR 1.12 MG/DL (0.70-1.30); GLOMERULAR FILTRATION RATE > 60.0 (>49); GLUCOSE, FASTING 50 MG/DL (74-106); HDL CHOLESTEROL 31.1 MG/DL (>40); LDL CHOLESTEROL 116.1 MG/DL (<100); MAGNESIUM LEVEL 1.7 MG/DL (1.8-2.4); NON-HDL-C 149 MG/DL; POTASSIUM SERUM 4.5 MMOL/L (3.5-5.1); SODIUM LEVEL 142 MMOL/L (136-145); TOTAL PROTEIN 6.1 G/DL (5.7-8.2); TRIGLYCERIDES LEVEL 164 MG/DL (<150)
[2022-04-08 16:45] LABS: FREE T4 1.19 NG/DL (0.89-1.76)
== END ==
LOC: M SFHCADAM 14:35
PROVIDERS: ATTEND Physician Assistant
DX: I48.0 Paroxysmal atrial fibrillation (principal); K22.70 Barrett's esophagus without dysplasia; G47.33 Obstructive sleep apnea (adult) (pediatric); Z99.89 Dependence on other enabling machines and devices; Z13.220 Encounter for screening for lipoid disorders; Z79.899 Other long term (current) drug therapy

== ENCOUNTER → 2022-07-13 | Outpatient (REF) | payer MEDICARE, OTHER ==
[2022-07-13 13:29] LABS: HEMATOCRIT 48.1 % (42.0-52.0); HEMOGLOBIN 15.8 g/dl (13.5-17.5); MEAN CORPUSCULAR HGB CONC 32.8 g/dl (32.0-36.5); MEAN CORPUSCULAR VOLUME 88.4 fl (80.0-96.0); PLATELET COUNT, AUTOMATED 228 10^3/uL (150-450); RED BLOOD COUNT 5.44 10^6/uL (4.30-6.10); WHITE BLOOD COUNT 5.3 10^3/uL (4.0-10.0)
[2022-07-13 13:35] LABS: ALBUMIN 3.6 G/DL (3.2-5.2); ALKALINE PHOSPHATASE 52 U/L (46-116); ALT/SGPT 22 U/L (7.0-40); AST/SGOT 14 U/L (<34); BILIRUBIN,TOTAL 0.6 MG/DL (0.3-1.2); BLOOD UREA NITROGEN 20 MG/DL (9-23); CALCIUM LEVEL 8.2 MG/DL (8.3-10.6); CARBON DIOXIDE LEVEL 30 MMOL/L (20-31); CHLORIDE LEVEL 106 MMOL/L (98-107); CHOLESTEROL LEVEL 193 MG/DL (<200); CHOLESTEROL RISK RATIO 5.05 (<5); CREATININE FOR GFR 1.21 MG/DL (0.70-1.30); GLOMERULAR FILTRATION RATE > 60.0 (>49); GLUCOSE, FASTING 88 MG/DL (74-106); HDL CHOLESTEROL 38.2 MG/DL (>40); MAGNESIUM LEVEL 1.8 MG/DL (1.8-2.4); NON-HDL-C 154.8 MG/DL; POTASSIUM SERUM 5.1 MMOL/L (3.5-5.1); SODIUM LEVEL 139 MMOL/L (136-145); TOTAL PROTEIN 6.5 G/DL (5.7-8.2); TRIGLYCERIDES LEVEL 114 MG/DL (<150)
== END ==
LOC: M SFHCADAM 08:47
PROVIDERS: ATTEND Physician Assistant
DX: E78.5 Hyperlipidemia, unspecified (principal); E83.42 Hypomagnesemia

== ENCOUNTER → 2022-10-22 | Outpatient (REF) | payer MEDICARE, OTHER ==
[2022-10-22 14:15] LABS: CHOLESTEROL RISK RATIO 5.07 (<5); HDL CHOLESTEROL 38.4 MG/DL (>40); LDL CHOLESTEROL 138.8 MG/DL (<100); NON-HDL-C 156.6 MG/DL
[2022-10-22 14:18] LABS: FREE T4 1.25 NG/DL (0.89-1.76)
[2022-10-22 14:19] LABS: THYROID STIMULATING HORMONE 1.386 uIU/ML (0.55-4.78)
== END ==
LOC: M SFHCADAM 08:40
PROVIDERS: ATTEND Family Medicine
DX: E78.5 Hyperlipidemia, unspecified (principal); Z12.5 Encounter for screening for malignant neoplasm of prostate; I48.0 Paroxysmal atrial fibrillation
CPT/HCPCS: 80061; 84439; 84443; G0103

== ENCOUNTER → 2023-01-22 | Outpatient (REF) | payer MEDICARE, BC, OTHER ==
[2023-01-22 15:15] LABS: HEMATOCRIT 47.9 % (42.0-52.0); HEMOGLOBIN 15.8 g/dl (13.5-17.5); MEAN CORPUSCULAR HEMOGLOBIN 29.3 pg (27.0-33.0); MEAN CORPUSCULAR VOLUME 88.9 fl (80.0-96.0); PLATELET COUNT, AUTOMATED 210 10^3/uL (150-450); RED BLOOD COUNT 5.39 10^6/uL (4.30-6.10); WHITE BLOOD COUNT 5.8 10^3/uL (4.0-10.0)
[2023-01-22 15:19] LABS: ALBUMIN 3.6 G/DL (3.2-5.2); ALKALINE PHOSPHATASE 39 U/L (46-116); ALT/SGPT 17 U/L (7.0-40); AST/SGOT 13 U/L (<34); BILIRUBIN,TOTAL 0.9 MG/DL (0.3-1.2); BLOOD UREA NITROGEN 22 MG/DL (9-23); CALCIUM LEVEL 8.8 MG/DL (8.3-10.6); CARBON DIOXIDE LEVEL 29 MMOL/L (20-31); CHLORIDE LEVEL 104 MMOL/L (98-107); CHOLESTEROL LEVEL 190 MG/DL (<200); CHOLESTEROL RISK RATIO 6.29 (<5); CREATININE FOR GFR 1.23 MG/DL (0.70-1.30); GLOMERULAR FILTRATION RATE > 60.0 (>49); GLUCOSE, FASTING 86 MG/DL (74-106); HDL CHOLESTEROL 30.2 MG/DL (>40); LDL CHOLESTEROL 133.4 MG/DL (<100); NON-HDL-C 159.8 MG/DL; POTASSIUM SERUM 4.7 MMOL/L (3.5-5.1); SODIUM LEVEL 136 MMOL/L (136-145); TOTAL PROTEIN 6.2 G/DL (5.7-8.2); TRIGLYCERIDES LEVEL 132 MG/DL (<150)
== END ==
LOC: M SFHCADAM 08:31
PROVIDERS: ATTEND Family Medicine
DX: E78.00 Pure hypercholesterolemia, unspecified (principal); I48.0 Paroxysmal atrial fibrillation; E83.42 Hypomagnesemia; K22.70 Barrett's esophagus without dysplasia

== ENCOUNTER → 2023-04-28 | Outpatient (REF) | payer MEDICARE, BC, OTHER ==
[2023-04-28 14:01] LABS: HEMATOCRIT 49.3 % (42.0-52.0); HEMOGLOBIN 16.5 g/dl (13.5-17.5); MEAN CORPUSCULAR HGB CONC 33.5 g/dl (32.0-36.5); MEAN CORPUSCULAR VOLUME 86.6 fl (80.0-96.0); PLATELET COUNT, AUTOMATED 223 10^3/uL (150-450); RED BLOOD COUNT 5.69 10^6/uL (4.30-6.10); WHITE BLOOD COUNT 6.4 10^3/uL (4.0-10.0)
[2023-04-28 14:27] LABS: MAU/CREAT RATIO 3.4 MCG/MG (0.0-30.0)
[2023-04-28 14:33] LABS: PSA SCREENING 2.29 NG/ML (< 4.00)
[2023-04-28 14:35] LABS: ALBUMIN 3.6 G/DL (3.2-5.2); ALKALINE PHOSPHATASE 46 U/L (46-116); ALT/SGPT 16 U/L (7.0-40); AST/SGOT 14 U/L (<34); BILIRUBIN,TOTAL 0.8 MG/DL (0.3-1.2); BLOOD UREA NITROGEN 26 MG/DL (9-23); CALCIUM LEVEL 8.9 MG/DL (8.3-10.6); CARBON DIOXIDE LEVEL 30 MMOL/L (20-31); CHLORIDE LEVEL 107 MMOL/L (98-107); CHOLESTEROL LEVEL 160 MG/DL (<200); CHOLESTEROL RISK RATIO 5.63 (<5); CREATININE FOR GFR 1.25 MG/DL (0.70-1.30); GLOMERULAR FILTRATION RATE > 60.0 (>49); GLUCOSE, FASTING 83 MG/DL (74-106); HDL CHOLESTEROL 28.4 MG/DL (>40); LDL CHOLESTEROL 105.4 MG/DL (<100); NON-HDL-C 131.6 MG/DL; SODIUM LEVEL 140 MMOL/L (136-145); TOTAL PROTEIN 6.3 G/DL (5.7-8.2); TRIGLYCERIDES LEVEL 131 MG/DL (<150)
== END ==
LOC: M SFHCADAM 09:01
PROVIDERS: ATTEND Family Medicine
DX: E78.5 Hyperlipidemia, unspecified (principal); K22.70 Barrett's esophagus without dysplasia; G47.33 Obstructive sleep apnea (adult) (pediatric); Z12.5 Encounter for screening for malignant neoplasm of prostate; E83.42 Hypomagnesemia
CPT/HCPCS: 80053; 80061; 82043; 85027; G0103

== ENCOUNTER 2023-10-20 10:12 | Day surgery (SDC) | payer MEDICARE, BC ==
[~2023-10-20] VITALS: Ht 175.3 cm; Wt 83.9 kg
[~2023-10-20 10:12] MED LIST changes: +DIGO0.253 PO
[2023-10-20] MEDS: NS 1,000 ML IV ONE (10:35)
[2023-10-20] MEDS ORDERED: fentaNYL 100 MCG/2 ML INJECTION As Ordered ONE (10:42)
[2023-10-20] MEDS ORDERED: LIDOCAINE 2% 100MG/5ML SDV (FOR ANES.) As Ordered ONE (10:44)
[2023-10-20] MEDS ORDERED: propofoL 200 MG/20 ML VIAL As Ordered ONE (10:44)
[2023-10-20 11:43] VITALS: TEMP 97
[2023-10-20 12:00] VITALS: BP 100/71; O2SAT 97
== END 2023-10-20 12:00 | disposition home or self-care (01) ==
LOC: M OPP 10:12
PROVIDERS: ATTEND Internal Medicine Gastroenterology
DX: K31.89 Other diseases of stomach and duodenum (principal); K22.70 Barrett's esophagus without dysplasia; K22.89 Other specified disease of esophagus; K44.9 Diaphragmatic hernia without obstruction or gangrene; I48.91 Unspecified atrial fibrillation; G47.30 Sleep apnea, unspecified; Z99.89 Dependence on other enabling machines and devices; Z79.02 Long term (current) use of antithrombotics/antiplatelets; Z79.82 Long term (current) use of aspirin; Z79.83 Long term (current) use of bisphosphonates; Z79.84 Long term (current) use of oral hypoglycemic drugs; Z88.0 Allergy status to penicillin; F17.290 Nicotine dependence, other tobacco product, uncomplicated
CPT/HCPCS: 43239; 88305; J3010

== ENCOUNTER → 2023-11-30 | Outpatient (REF) | payer MEDICARE, BC | LOC: M SFHCADAM 10:09 | PROVIDERS: ATTEND Family Medicine | DX: I48.0 Paroxysmal atrial fibrillation (principal); K22.70 Barrett's esophagus without dysplasia; E78.5 Hyperlipidemia, unspecified; Z13.1 Encounter for screening for diabetes mellitus ==

== ENCOUNTER → 2024-05-08 | Outpatient (CLI) | payer MEDICARE, BC ==
[2024-05-08 13:45] LABS: HEMATOCRIT 50.3 % (42.0-52.0); HEMOGLOBIN 16.6 g/dl (13.5-17.5); MEAN CORPUSCULAR VOLUME 87.8 fl (80.0-96.0); PLATELET COUNT, AUTOMATED 220 10^3/uL (150-450); RED BLOOD COUNT 5.73 10^6/uL (4.30-6.10); WHITE BLOOD COUNT 5.9 10^3/uL (4.0-10.0)
[2024-05-08 13:51] LABS: ALBUMIN 3.6 G/DL (3.2-5.2); BILIRUBIN,TOTAL 0.8 MG/DL (0.3-1.2); CALCIUM LEVEL 9.2 MG/DL (8.3-10.6); CHOLESTEROL RISK RATIO 5.86 (<5); CREATININE FOR GFR 1.27 MG/DL (0.70-1.30); HDL CHOLESTEROL 31.9 MG/DL (>40); LDL CHOLESTEROL 123.7 MG/DL (<100); MAGNESIUM LEVEL 1.9 MG/DL (1.8-2.4); NON-HDL-C 155.1 MG/DL; POTASSIUM SERUM 4.7 MMOL/L (3.5-5.1); TOTAL PROTEIN 6.8 G/DL (5.7-8.2)
== END ==
LOC: M ADAMS 08:41
PROVIDERS: ATTEND Physician Assistant
DX: R06.02 Shortness of breath (principal); I48.21 Permanent atrial fibrillation; E78.00 Pure hypercholesterolemia, unspecified

== ENCOUNTER → 2024-06-20 | Outpatient (REF) | payer MEDICARE, BC ==
[2024-06-20 13:39] LABS: PSA SCREENING 2.49 NG/ML (< 4.00)
[2024-06-20 13:43] LABS: FREE T4 1.27 NG/DL (0.89-1.76)
[2024-06-20 13:44] LABS: THYROID STIMULATING HORMONE 2.343 uIU/ML (0.55-4.78)
[2024-06-20 13:45] LABS: MAGNESIUM LEVEL 1.9 MG/DL (1.8-2.4)
== END ==
LOC: M SFHCADAM 08:36
PROVIDERS: ATTEND Family Medicine
DX: I48.0 Paroxysmal atrial fibrillation (principal); Z13.1 Encounter for screening for diabetes mellitus; Z12.5 Encounter for screening for malignant neoplasm of prostate
CPT/HCPCS: 83735; 84439; 84443; G0103

== ENCOUNTER → 2024-06-27 | Outpatient (REF) | payer MEDICARE, BC ==
[2024-06-27 18:50] LABS: HEMOGLOBIN A1c 5.4 % (4.0-6.0)
== END ==
LOC: M SFHCADAM 11:49
PROVIDERS: ATTEND Family Medicine
DX: Z13.1 Encounter for screening for diabetes mellitus (principal)

== ENCOUNTER → 2024-09-05 | Outpatient (REF) | payer MEDICARE, BC ==
[~2024-09-05] MED LIST changes: -PRAV20TA2 PO; +PRAV20TA78 PO
[2024-09-05 14:41] LABS: ALT/SGPT 44.0 U/L (7.0-40); AST/SGOT 32.0 U/L (<34); CALCIUM LEVEL 8.5 MG/DL (8.3-10.6); CARBON DIOXIDE LEVEL 27.0 MMOL/L (20-31); CHLORIDE LEVEL 103.0 MMOL/L (98-107); CHOLESTEROL LEVEL 154.0 MG/DL (<200); CHOLESTEROL RISK RATIO 4.63 (<5); CREATININE FOR GFR 1.2 MG/DL (0.70-1.30); GLOMERULAR FILTRATION RATE 65.9 (>49); LDL CHOLESTEROL 88.2 MG/DL (<100); NON-HDL-C 120.8 MG/DL; POTASSIUM SERUM 4.5 MMOL/L (3.5-5.1); SODIUM LEVEL 140.0 MMOL/L (136-145); TRIGLYCERIDES LEVEL 163.0 MG/DL (<150)
== END ==
LOC: M SFHCADAM 08:59
PROVIDERS: ATTEND Physician Assistant
DX: E78.5 Hyperlipidemia, unspecified (principal)